=== PATIENT | female | born 1935 | race Two or more races ===

== ENCOUNTER 2017-07-17 20:37 | Inpatient (IN) | payer MEDICARE, OTHER ==
[~2017-07-17] VITALS: Ht 152.4 cm; Wt 43.6 kg
[~2017-07-17 20:37] MED LIST: ACET-898 PO; ACETAMINOPHEN 325 MG TAB PO PRN; ACETAMINOPHEN/HYDROcodone 325 MG/5 MG TAB PO PRN; ACETAMINOPHEN/HYDROcodone 325 MG/7.5 MG TAB PO PRN; BISA10SU3 RECTAL; BISACODYL 10 MG SUPP RECTAL PRN; CLON1TAB PO; DOCU8.6T PO; LACTULOSE SYRUP 20 GM/30 ML CUP PO PRN; LORA0.5T PO; LORA1TAB12 PO; LORazepam 0.5 MG TAB PO PRN; LORazepam 1 MG TAB PO PRN; MAGNESIUM HYDROXIDE SUSP 30 ML CUP PO PRN; MORPHINE SULFATE 4 MG/ML INJ IV PUSH PRN; NALOXONE HCL 0.4 MG/ML AMP IV PUSH PRN; ONDANSETRON HCL 4 MG/2 ML VIAL IV PUSH PRN; QUET5TAB PO; SENNOSIDES 8.6 MG TAB PO PRN; SODIUM CHLORIDE 0.9% FLUSH 10 ML FLUSH IV FLUSH PRN; ZINC20OI
[2017-07-17 20:45] VITALS: BP 127/65; PULSE 86; RESP 17; TEMP 97.9; O2SAT 98
[2017-07-17] MEDS ORDERED: SODIUM CHLORIDE 0.9% FLUSH 10 ML FLUSH IV FLUSH SCH (21:00)
[2017-07-17] MEDS: DOCUSATE SODIUM 50 MG/SENNA 8.6 MG TAB PO SCH (21:00)
[2017-07-17] MEDS: PANTOPRAZOLE SODIUM 40 MG VIAL IV PUSH SCH (22:06)
[2017-07-17] MEDS: QUEtiapine FUMARATE 25 MG TAB PO SCH (22:07)
[2017-07-17] MEDS: clonazePAM 1 MG TAB PO SCH (22:07)
[2017-07-17] MEDS: SODIUM CHLORIDE 0.9% FLUSH 10 ML FLUSH IV FLUSH SCH (22:08)
[2017-07-17] MEDS: SODIUM CHLOR 0.9% 1000 ML INJ 1,000 ML IV SCH (22:11)
[2017-07-17] MEDS: OCTREOTIDE INJ 500 MCG in SODIUM CHLORID 0.9% 500 ML INJ 499.5 ML IV SCH (22:23)
[2017-07-17 22:57] VITALS: PULSE 79
[2017-07-18] VITALS (13 sets, daily range): BP systolic 93–163; BP diastolic 53–97; PULSE 65–86; RESP 17–18; TEMP 97.3–98.6; O2SAT 94–99
--- NOTE | 2017-07-18 00:18 | HHI.HP ---
[facility] No Primary Care Physician Admission Diagnosis Diagnoses: Travel History International Travel<30 Days: No Contact w/Intl Traveler <30 Da: No Traveled to Known Affected Are: No History of Present Illness 82-year-old female on hospice for advanced dementia with a past medical history of hypertension, hyperlipidemia and multiple CVAs was brought to the emergency department by her daughter whom she lives with for soft, bloody stools since Wednesday. The patient is mostly nonverbal however her daughter who is her stone lathe operator describes dark blood with clots in the patient's stool since Wednesday. She has a history of anemia with GI bleed. Her last colonoscopy was 7 years ago which did not identify a source of bleeding. Patient's vital signs are stable. She has an H&H of 6.9/25.1. The patient is Religious and refuses all blood products. Her daughter also requests minimization of blood draws. Review of Systems Unable to obtain secondary to the patient's mental status Past Family Social History Past Medical History History of hypertension History of hyperlipidemia History of multiple CVAs History of anemia Past Surgical History Reported Medications Reported Meds & Active Scripts Active Reported Zinc Oxide (Zinc Oxide (Topical)) 20 % Oin Lorazepam 1 Mg Tab 1 Mg PO Q6H PRN Lorazepam 0.5 Mg Tab 0.5 Mg PO Q6H PRN Acetaminophen Extra Strength (Acetaminophen) 500 Mg Tablet 650 Mg PO Q4HR Quetiapine (Quetiapine Fumarate) 50 Mg Tab 50 Mg PO HS Docusate Sodium-Senna (Sennosides-Docusate Sodium) 8.6-50 Mg Tab 1 Tab PO QD Bisacodyl Supp (Bisacodyl) 10 Mg Supp 10 Mg RECTAL DAILY PRN Clonazepam 1 Mg Tab 1 Mg PO HS Allergies: Coded Allergies: No Known Drug Allergies (Verified Allergy, Unknown, 07/17/17) Family History Mother with diabetes mellitus Social History Does not use tobacco, alcohol or illicit drugs Physical Exam Vital Signs Vital Signs Date Time Temp Pulse Resp B/P (MAP) Pulse Ox O2 Delivery O2 Flow Rate FiO2 07/17/17 23:28 Room Air 07/17/17 20:45 97.9 86 17 127/65 (58) 98 Physical Exam GENERAL: Thin female lying in bed SKIN: No rashes, ecchymoses or lesions. Cool and dry. HEAD: Atraumatic. Normocephalic. No temporal or scalp tenderness. EYES: Pupils equal round and reactive. Extraocular motions intact. No scleral icterus. No injection or drainage. ENT: Nose without bleeding, purulent drainage or septal hematoma. Throat without erythema, tonsillar hypertrophy or exudate. Uvula midline. Airway patent. NECK: Trachea midline. No JVD or lymphadenopathy. Supple, nontender, no meningeal signs. CARDIOVASCULAR: Regular rate and rhythm. 2/6 NENA RESPIRATORY: Clear to auscultation. Breath sounds equal bilaterally. No wheezes , rales, or rhonchi. GASTROINTESTINAL: Abdomen soft, non-tender, nondistended. No hepato-splenomegaly , or palpable masses. No guarding. MUSCULOSKELETAL: Extremities without clubbing, cyanosis, or edema. No joint tenderness, effusion, or edema noted. No calf tenderness. NEUROLOGICAL: Patient is oriented to her daughter. Is not able to answer questions. Caprini VTE Risk Assessment Caprini VTE Risk Assessment: Mod/High Risk (score >= 2) Caprini Risk Assessment Model Point Value = 1 Point Value = 2 Point Value = 3 Point Value = 5 Age 41-60 Minor surgery BMI > 25 kg/m2 Swollen legs Varicose veins or History of unexplained or recurrent spontaneous Oral contraceptives or hormone replacement Sepsis (< 1 month) Serious lung disease, including pneumonia (< 1 month) Abnormal pulmonary function Acute myocardial infarction Congestive heart failure (< 1 month) History of inflammatory bowel disease Medical patient at bed rest Age 61-74 Arthroscopic surgery Major open surgery (> 45 min) Laparoscopic surgery (> 45 min) Malignancy Confined to bed (> 72 hours) Immobilizing plaster cast Central venous access Age >= 75 History of VTE Family history of VTE Factor V Leiden Prothrombin [id number] Lupus anticoagulant Anticardiolipin antibodies Elevated serum homocysteine Heparin-induced thrombocytopenia Other congenital or acquired thrombophilia Stroke (< 1 month) Elective arthroplasty Hip, pelvis, or leg fracture Acute spinal cord injury (< 1 month) Prophylaxis Regimen Total Risk Factor Score Risk Level Prophylaxis Regimen 0-1 Low Early ambulation 2 Moderate Order ONE of the following: *Sequential Compression Device (SCD) *Heparin 5000 units SQ BID 3-4 Higher Order ONE of the following medications: *Heparin 5000 units SQ TID *Enoxaparin/Lovenox 40 mg SQ daily (WT < 150 kg, CrCl > 30 mL/min) *Enoxaparin/Lovenox 30 mg SQ daily (WT < 150 kg, CrCl > 10-29 mL/min) *Enoxaparin/Lovenox 30 mg SQ BID (WT < 150 kg, CrCl > 30 mL/min) AND/OR *Sequential Compression Device (SCD) 5 or more Highest Order ONE of the following medications: *Heparin 5000 units SQ TID (Preferred with Epidurals) *Enoxaparin/Lovenox 40 mg SQ daily (WT < 150 kg, CrCl > 30 mL/min) *Enoxaparin/Lovenox 30 mg SQ daily (WT < 150 kg, CrCl > 10-29 mL/min) *Enoxaparin/Lovenox 30 mg SQ BID (WT < 150 kg, CrCl > 30 mL/min) AND *Sequential Compression Device (SCD) Assessment and Plan Assessment and Plan Assessment/plan: 1. Severe anemia/GI bleed H&H of 6.9/25.1 Patient is a Religious and per her daughter who is power of securities attorney refuses all blood products Patient's daughter requests minimization of blood draws, denies serial H&Hs IV Protonix, Octreotide ggt Gastroenterology consulted, appreciate assistance Clear liquid diet Monitor for signs of shock Daughter would like to explore all options of resuscitation with the exclusion of blood products 2. Suspected iron deficiency Iron profile pending Patient will likely benefit from iron supplementation 3. Advanced dementia On hospice Continue home Seroquel, Klonopin, Ativan FEN Clear liquid diet Electrolytes: monitor and replete prn Holding pharmacologic anticoagulation secondary to active GI bleed Physician Certification 2 Midnight Certification Type: Admission for Inpatient Services Order for Inpatient Services The services are ordered in accordance with Medicare regulations or non- Medicare payer requirements, as applicable. In the case of services not specified as inpatient-only, they are appropriately provided as inpatient services in accordance with the 2-midnight benchmark. Estimated LOS (days): 2 2 days is the estimated time the patient will need to remain in the hospital, assuming treatment plan goals are met and no additional complications. Post-Hospital Plan: Not yet determined Jimena Costello MD Jul 18, 2017 00:18
[2017-07-18] MEDS: SODIUM CHLORIDE 0.9% FLUSH 10 ML FLUSH IV FLUSH SCH ×2 (09:00→20:37)
[2017-07-18 09:51] LABS: AUTOMATED NEUTROPHIL # 4.9 TH/MM3 (1.8-7.7); BASOPHIL # 0.1 TH/MM3 (0-0.2); BASOPHIL % 0.8 % (0.0-2.0); EOSINOPHIL # 0.3 TH/MM3 (0-0.4); EOSINOPHIL % 3.1 % (0.0-4.0); LYMPH % 29.5 % (9.0-44.0); LYMPHOCYTE # 2.6 TH/MM3 (1.0-4.8); MEAN CELL VOLUME 64.5 FL (80.0-100.0); MONO % 10.6 % (0.0-8.0); PLATELET COUNT 237 TH/MM3 (150-450); RED BLOOD COUNT 2.86 MIL/MM3 (4.00-5.30); RED CELL DISTRIBUTION WIDTH 18.1 % (11.6-17.2); WHITE BLOOD COUNT 8.8 TH/MM3 (4.0-11.0)
[2017-07-18 10:07] LABS: HEMO FLAGS DIFF FINAL; MEAN CORPUSCULAR HGB CONC 29.5 % (32.0-36.0)
[2017-07-18 10:11] LABS: ANION GAP 8 MEQ/L (5-15); AST (GOT) 11 U/L (15-37); BICARBONATE 25.5 MEQ/L (21.0-32.0); BLOOD UREA NITROGEN 15 MG/DL (7-18); CHLORIDE 116 MEQ/L (98-107); GLOMERULAR FILTRATION RATE 97 ML/MIN (>89); MAGNESIUM 1.8 MG/DL (1.5-2.5); POTASSIUM 3.6 MEQ/L (3.5-5.1); SODIUM (NA) 149 MEQ/L (136-145)
[2017-07-18 10:13] LABS: HEMATOCRIT 18.4 % (35.0-46.0)
[2017-07-18 10:20] LABS: ALKALINE PHOSPHATASE 63 U/L (45-117); ALT (GPT) 9 U/L (10-53); TOTAL BILIRUBIN ADULT 0.2 MG/DL (0.2-1.0); TRANSFERRIN IRON PROFILE 286 MG/DL (200-360)
--- NOTE | 2017-07-18 10:50 | HHI.PR ---
Subjective Remarks Follow-up GI bleed, severe anemia. The patient is nonverbal. She does awaken to verbal stimuli, but does not answer questions. Per nursing, she has continued to have bloody stools. Objective Vitals Vital Signs Date Time Temp Pulse Resp B/P (MAP) Pulse Ox O2 Delivery O2 Flow Rate FiO2 07/18/17 10:05 99 Nasal Cannula 3.00 07/18/17 08:09 98.4 77 18 133/63 (86) 99 07/18/17 04:00 78 07/18/17 04:00 97.3 78 17 93/55 (68) 96 07/18/17 00:15 77 07/18/17 00:00 98 Nasal Cannula 3.00 07/18/17 00:00 98.6 78 17 108/53 (71) 98 07/17/17 23:28 Room Air 07/17/17 22:57 79 07/17/17 20:45 97.9 86 17 127/65 (85) 98 I/O 07/17/17 07/17/17 07/17/17 07/18/17 07/18/17 07/18/17 07:00 15:00 23:00 07:00 15:00 23:00 Intake Total 1039 ml Balance 1039 ml Intake Oral 0 ml IV Total 1039 ml # Voids 0 # Bowel Movements 1 Result Diagram: 07/18/1780407/18/17804 Objective Remarks General: Elderly female in no acute distress. Heart: Regular rate and rhythm. 2/6 systolic ejection murmur. Lungs: Clear to auscultation bilaterally. No wheezes, rales, or rhonchi. Breathing is nonlabored. Abdomen: Soft, nontender, nondistended. Extremities: No lower extremity edema. Psych: Sleeping, but awakens to verbal stimuli. Does not answer questions. Urinary Catheter: No Vascular Central Line Catheter: No A/P Assessment and Plan 1. GI bleed, severe anemia: Hemoglobin was 6.9 on presentation to the ER yesterday. Recheck this morning shows hemoglobin of 5.4. Patient continues to have blood in her stools. I spoke with the patient's daughter, who is her power of patent attorney. The patient is was witness and refuses all blood products. Family does want aggressive treatment with the exception of blood products. I spoke with Dr. Regan, gastroenterology. He recommended GoLYTELY prep, 1 gallon now. He will plan to for EGD/colonoscopy today. The patient's family does want to proceed with GI procedure to try to find the source of bleeding. 2. Advanced dementia: Patient on hospice. 3. DVT prophylaxis: SCDs, NIOCLE choudhury. Avoid chemical prophylaxis secondary to GI bleeding. The patient's daughter states that she is on her way to the hospital now. I explained to her that if we are unable to find the source of bleeding and her hemoglobin kept dropping, that this would result in . We discussed the risks involved with GI procedure as well. Rah Blanco MD Jul 18, 2017 10:50
[2017-07-18] MEDS ORDERED: PEG (High)/E-LYTE SOLN 4000 ML BTL PO ONE (11:00)
[2017-07-18] MEDS: DOCUSATE SODIUM 50 MG/SENNA 8.6 MG TAB PO SCH ×2 (11:04→20:38)
[2017-07-18] MEDS: PANTOPRAZOLE SODIUM 40 MG VIAL IV PUSH SCH ×2 (11:04→20:37)
[2017-07-18] MEDS ORDERED: IRON SUCROSE INJ 100 MG in SODIUM CHLORIDE 0.9% INJ 100 ML IV ONE (14:00)
[2017-07-18] MEDS ORDERED: EPOETIN ALFA 20,000 UNITS/ML VIAL SQ ONE (14:00)
[2017-07-18] MEDS: SODIUM CHLOR 0.9% 1000 ML INJ 1,000 ML IV SCH ×2 (14:39→22:48)
[2017-07-18 15:36] LABS: REVIEW FLAG FINAL
[2017-07-18 15:39] LABS: HEMATOCRIT 17.9 % (35.0-46.0)
--- NOTE | 2017-07-18 16:03 | MB ---
cc: EFRA TELLO DATE OF CONSULTATION: 07/18/2017. REASON FOR CONSULTATION: GI bleed and anemia. DATE OF : 1935. REFERRING PHYSICIAN: Dr. Marleny Bran. HISTORY OF PRESENT ILLNESS: Thank you for the consultation. This is a pleasant 82-year-old lady who apparently has a history of dementia. She is in hospice according to her family to help with her dementia. The patient was doing okay until she started having bloody stool, soft, on Wednesday. The patient is unable to give good history. Most of the history was done from her daughter and her granddaughter who are the caregivers and very involved with the patient. The patient's family describes that the patient had dark stool with clots for the last five days. She had history of anemia and GI bleed in the past. The last colonoscopy was about seven years ago and endoscopy maybe two years ago. The patient was significantly anemic with her hemoglobin as low as 5.9. The patient is a Taoist and she will not be able to take any blood products. The patient is lying in bed comfortably with no significant complaints, but again, is nonverbal. REVIEW OF SYSTEMS: Unobtainable. It seems, according to the family, she is reasonably functional except for the dementia. PAST MEDICAL HISTORY: Significant for: 1. Hyperlipidemia. 2. CVA. 3. Anemia. 4. Hypertension. 5. section. MEDICATIONS: Medications reviewed in the chart. ALLERGIES: NO KNOWN DRUG ALLERGIES. SOCIAL HISTORY: No tobacco, drugs or alcohol. FAMILY HISTORY: Family history is significant for diabetes. PHYSICAL EXAMINATION: GENERAL: The patient is awake, not oriented, looks well-nourished. HEAD, EYES, EARS, NOSE, THROAT: Atraumatic. The pupils are round and reactive to light. NECK: The neck is supple. CHEST: Clear to auscultation and percussion. CARDIAC: Regular rate and rhythm. ABDOMEN: Abdomen soft and nondistended and nontender. No hepatosplenomegaly. No masses. Positive bowel sounds. EXTREMITIES: No edema, clubbing or cyanosis at this time. NEUROLOGIC: Neurologically awake, not oriented, no focal abnormality at this time. PSYCHIATRIC: Psychologically unable to evaluate. LABORATORY DATA: White count 8.8, hemoglobin 5.4, platelets 237,000. Sodium 149, potassium 3.6, iron 9, saturation 2.2, AST 11, ALT 9, albumin 2.6. ASSESSMENT AND PLAN: 82-year-old lady with dementia with active GI bleed. The patient dropped her hemoglobin significantly and is currently 5.4. She is a Taoist. Her family, who is power of insurance attorney, her daughter, refusing all blood products. I had a long discussion with them about the risk of having no blood products. We talked about doing upper endoscopy and colonoscopy and I explained to them the high risk of the procedure with anesthesia during significant anemia. The risks include CVA, myocardial infarction, respiratory failure, also we talked about starting IV infusion and Procrit. I told them that this will not help in the acute phase. We had a discussion with Dr. Pond and he confirmed that. Still, the family refused any blood products completely. They are going to think about performing the upper endoscopy and colonoscopy and if they would like to proceed, we will do it this afternoon. We will prep the patient for the procedures and will repeat hemoglobin in a few hours before the procedure. MD SUNSHINE Sharpe/ADRIANA /3:27 PM /3:49 PM
--- NOTE | 2017-07-18 17:36 | PD.PROCEDR ---
GI Procedure PROCEDURE PERFORMED Upper endoscopy, colonoscopy with biopsy INDICATION FOR PROCEDURE Anemia, GI bleed PROCEDURE: The procedure, risks and benefits were discussed with Ms. Price and informed consent was obtained. Anesthesia sedated her with Diprivan. She was placed in the left lateral decubitus position. EGD: The Pentax videoscope was introduced through the oropharynx and advanced to the second portion of the duodenum under direct visualization. Retroflexion was performed in the stomach. The scope withdrawal back after that without any immediate complication FINDINGS: Mild erythema and the body of the stomach most likely irritation from the NG tube, no sign of active bleeding seen Colonoscopy: The Pentax videoscope was introduced through the rectum and advanced to cecum which was identified by the ileocecal valve and appendiceal orifice. Retroflexion was performed in the rectum. Colonic prep was good, random biopsy with done throughout the colon FINDINGS: No active bleeding was seen Significant exudate with small ulcerations consistent with colitis most likely ulcerative colitis but it could be infectious ESTIMATED BLOOD LOSS: None SPECIMENS REMOVED: Random colon biopsy COMPLICATIONS: None IMPRESSION: Minimal irritation of the stomach possibly NG tube versus gastritis Colitis with exudate most likely ulcerative colitis but infectious process cannot BE rule out No active bleeding PLAN: Await biopsy results Asacole HD 800 mg 3 times daily H an H in a.m. Supportive care Further plan depending on the biopsy Franki Regan MD Jul 18, 2017 17:36
[2017-07-18] MEDS ORDERED: DO NOT ADM ANY ANTICOAGULANT DRUGS PRN (17:41)
[2017-07-18] MEDS: QUEtiapine FUMARATE 25 MG TAB PO SCH (20:37)
[2017-07-18] MEDS: clonazePAM 1 MG TAB PO SCH (20:37)
[2017-07-18] MEDS: MESALAMINE HD 800 MG DELAYED RELEASE TAB PO SCH (20:37)
[2017-07-18] MEDS: OCTREOTIDE INJ 500 MCG in SODIUM CHLORID 0.9% 500 ML INJ 499.5 ML IV SCH (22:48)
[2017-07-19] VITALS: BP 138/62; PULSE 74; PULSE 79; RESP 17; TEMP 98.5; O2SAT 98
[2017-07-19] MEDS: MESALAMINE HD 800 MG DELAYED RELEASE TAB PO SCH ×4 (02:15→17:40)
[2017-07-19 04:00] VITALS: BP 117/57; PULSE 78; PULSE 82; RESP 17; TEMP 98.7; O2SAT 98
[2017-07-19 07:27] LABS: AUTOMATED NEUTROPHIL # 3.7 TH/MM3 (1.8-7.7); BASOPHIL # 0.1 TH/MM3 (0-0.2); BASOPHIL % 0.8 % (0.0-2.0); EOSINOPHIL # 0.2 TH/MM3 (0-0.4); EOSINOPHIL % 3.2 % (0.0-4.0); HEMO FLAGS DIFF FINAL; LYMPH % 28.8 % (9.0-44.0); LYMPHOCYTE # 1.8 TH/MM3 (1.0-4.8); MEAN CELL VOLUME 63.5 FL (80.0-100.0); MEAN CORPUSCULAR HEMOGLOBIN 18.7 PG (27.0-34.0); MEAN CORPUSCULAR HGB CONC 29.5 % (32.0-36.0); MONO % 9.7 % (0.0-8.0); NEUT % 57.5 % (16.0-70.0); PLATELET COUNT 246 TH/MM3 (150-450); RED BLOOD COUNT 2.55 MIL/MM3 (4.00-5.30); RED CELL DISTRIBUTION WIDTH 17.9 % (11.6-17.2); WHITE BLOOD COUNT 6.4 TH/MM3 (4.0-11.0)
[2017-07-19 07:31] LABS: HEMATOCRIT 16.2 % (35.0-46.0)
[2017-07-19] MEDS: PANTOPRAZOLE SODIUM 40 MG VIAL IV PUSH SCH ×2 (07:44→20:25)
[2017-07-19] MEDS: SODIUM CHLORIDE 0.9% FLUSH 10 ML FLUSH IV FLUSH SCH ×2 (07:50→20:25)
[2017-07-19 07:55] LABS: BICARBONATE 24.5 MEQ/L (21.0-32.0)
[2017-07-19 07:59] LABS: POTASSIUM 2.8 MEQ/L (3.5-5.1)
[2017-07-19 08:00] VITALS: BP 120/83; PULSE 79; PULSE 81; RESP 16; TEMP 98.8; O2SAT 94
[2017-07-19 08:22] LABS: CALCIUM-PROTEIN CORRECTED 8.1 MG/DL (8.5-10.1)
[2017-07-19] MEDS: DOCUSATE SODIUM 50 MG/SENNA 8.6 MG TAB PO SCH ×2 (09:30→20:25)
[2017-07-19] MEDS: NS + KCL 20 MEQ INJ 1,000 ML IV SCH (09:49)
[2017-07-19] MEDS: POTASSIUM CHLOR 20 MEQ PREMIX 100 ML IV SCH ×2 (09:50→11:17)
--- NOTE | 2017-07-19 10:04 | HHI.PR ---
Subjective Remarks Follow up GI bleed, anemia. Patient is Uzbek-speaking, but does not really answer questions. Yesterday she was able to verbalize responses to questions, but only yes/no. Today she does not answer questions. Objective Vitals Vital Signs Date Time Temp Pulse Resp B/P (MAP) Pulse Ox O2 Delivery O2 Flow Rate FiO2 07/19/17 08:00 98.8 81 16 120/83 (95) 94 07/19/17 04:00 98.7 78 17 117/57 (77) 98 07/19/17 04:00 82 07/19/17 00:00 74 07/19/17 00:00 98.5 79 17 138/62 (87) 98 07/18/17 20:00 98 Room Air 07/18/17 20:00 97.8 78 17 127/67 (87) 98 07/18/17 20:00 78 07/18/17 18:20 97.8 86 18 156/77 (103) 94 07/18/17 18:05 85 21 166/88 (114) 94 Nasal Cannula 2 07/18/17 18:00 85 21 152/87 (108) 96 Nasal Cannula 2 07/18/17 17:51 98 Nasal Cannula 3.00 07/18/17 17:45 88 21 163/91 (115) 91 Nasal Cannula 2 07/18/17 17:41 97.2 87 21 186/89 (121) 96 Nasal Cannula 2 07/18/17 16:08 97.8 81 18 132/79 (96) 98 07/18/17 16:00 76 07/18/17 12:09 98.0 79 18 163/97 (119) 97 07/18/17 12:00 85 07/18/17 10:05 99 Nasal Cannula 3.00 I/O 07/18/17 07/18/17 07/18/17 07/19/17 07/19/17 07/19/17 07:00 15:00 23:00 07:00 15:00 23:00 Intake Total 1039 ml 300 ml 2120 ml Balance 1039 ml 300 ml 2120 ml Intake Oral 0 ml 0 ml 240 ml IV Total 1039 ml 1880 ml Other 300 ml # Voids 0 2 4 # Bowel Movements 1 3 0 Result Diagram: 07/19/1761907/19/17619 Objective Remarks General: Elderly female in no acute distress. Heart: Regular rate and rhythm. 2/6 systolic ejection murmur. Lungs: Clear to auscultation bilaterally. No wheezes, rales, or rhonchi. Breathing is nonlabored. Abdomen: Soft, nontender, nondistended. Extremities: No lower extremity edema. Psych: Sleeping, but awakens to verbal stimuli. Does not answer questions. Procedures 07/18/17 EGD/colonoscopy Urinary Catheter: No Vascular Central Line Catheter: No A/P Assessment and Plan 1. GI bleed, severe anemia: Hemoglobin was 6.9 on presentation to the ER. H/H continues to decrease. EGD/colonoscopy showed colitis, possibly ulcerative colitis. Biopsy pending. C. difficile toxin ordered. Asacol ordered by GI. 2. Advanced dementia: Patient on hospice. HOVF consulted. 3. DVT prophylaxis: SCDs, NICOLE choudhury. Avoid chemical prophylaxis secondary to GI bleeding. I have discussed extensively with the patient's family that without transfusion , she will likely continue to worsen, leading to . The patient is Jehovah' s Witness and refuses all blood products. Procrit given yesterday, will schedule 3 times weekly. Patient was also given IV iron, which will be ordered weekly. Prognosis is extremely poor and this has been communicated with the family multiple times. Rah Blanco MD Jul 19, 2017 10:04
[2017-07-19 12:00] VITALS: BP 123/58; PULSE 83; PULSE 90; RESP 16; TEMP 98.3; O2SAT 97
--- NOTE | 2017-07-19 12:26 | PD.WCN.NOT ---
Wound Consult Description: Received wound management consult for buttocks/ sacral area from Doctor Yina Communicated with: DAIANA Nava [address] [place] [address] and Doctor Blanco Recommendation: 1.Please cleanse buttock with soap and water to remove urine and feces and pat dry. Apply moisture barrier cream and leave open to air 2. Turn patient every 2 hours and PRN for comfort and offloading of pressure from jay prominences. 3. Please use ultra sorb pads for incontinence management. Additional Information: Patient seen on for evaluation of buttocks/ sacral wound management. [facility] editor. Turned patient with maximum assistance to R side to reveal intact scar tissue to bilateral buttock area. No open wounds or erythema are seen at this time. Applied moisture barrier cream and positioned patient to R side.Recommendations noted above. Isabel Melendez [facility] Jul 19, 2017 12:26
[2017-07-19] MEDS: OCTREOTIDE INJ 500 MCG in SODIUM CHLORID 0.9% 500 ML INJ 499.5 ML IV SCH ×2 (14:00→20:26)
[2017-07-19 14:08] LABS: REVIEW FLAG FINAL
[2017-07-19 14:11] LABS: HEMATOCRIT 17.8 % (35.0-46.0)
--- NOTE | 2017-07-19 15:50 | HHI.GIFU ---
Subjective Remarks Pt resting in bed, daughter at bedside. History of dementia, unable to answer questions appropriately, however she does not appear to be in any distress. (Amie Baeza) Objective Vitals I&O Vital Signs Date Time Temp Pulse Resp B/P (MAP) Pulse Ox O2 Delivery O2 Flow Rate FiO2 07/19/17 12:00 98.3 90 16 123/58 (79) 97 07/19/17 08:00 98.8 81 16 120/83 (95) 94 07/19/17 08:00 Room Air 2.00 07/19/17 08:00 79 07/19/17 04:00 98.7 78 17 117/57 (77) 98 07/19/17 04:00 82 07/19/17 00:00 74 07/19/17 00:00 98.5 79 17 138/62 (87) 98 07/18/17 20:00 98 Room Air 07/18/17 20:00 97.8 78 17 127/67 (87) 98 07/18/17 20:00 78 07/18/17 18:20 97.8 86 18 156/77 (103) 94 07/18/17 18:05 85 21 166/88 (114) 94 Nasal Cannula 2 07/18/17 18:00 85 21 152/87 (108) 96 Nasal Cannula 2 07/18/17 17:51 98 Nasal Cannula 3.00 07/18/17 17:45 88 21 163/91 (115) 91 Nasal Cannula 2 07/18/17 17:41 97.2 87 21 186/89 (121) 96 Nasal Cannula 2 07/18/17 16:08 97.8 81 18 132/79 (96) 98 07/18/17 16:00 76 I/O 07/18/17 07/18/17 07/18/17 07/19/17 07/19/17 07/19/17 07:00 15:00 23:00 07:00 15:00 23:00 Intake Total 1039 ml 300 ml 2120 ml 100 ml Balance 1039 ml 300 ml 2120 ml 100 ml Intake Oral 0 ml 0 ml 240 ml IV Total 1039 ml 1880 ml 100 ml Other 300 ml # Voids 0 2 4 # Bowel Movements 1 3 0 Laboratory Laboratory Tests Test 07/19/17 06:20 12/11/17 13:51 White Blood Count 6.4 Red Blood Count 2.55 Hemoglobin 4.8 5.3 Hematocrit 16.2 17.8 Mean Corpuscular Volume 63.5 Mean Corpuscular Hemoglobin 18.7 Mean Corpuscular Hemoglobin Concent 29.5 Red Cell Distribution Width 17.9 Platelet Count 246 Mean Platelet Volume 9.2 Neutrophils (%) (Auto) 57.5 Lymphocytes (%) (Auto) 28.8 Monocytes (%) (Auto) 9.7 Eosinophils (%) (Auto) 3.2 Basophils (%) (Auto) 0.8 Neutrophils # (Auto) 3.7 Lymphocytes # (Auto) 1.8 Monocytes # (Auto) 0.6 Eosinophils # (Auto) 0.2 Basophils # (Auto) 0.1 CBC Comment DIFF FINAL Differential Comment Blood Urea Nitrogen 6 Creatinine 0.51 Random Glucose 101 Total Protein 5.8 Calcium Level 7.4 Sodium Level 145 Potassium Level 2.8 Chloride Level 113 Carbon Dioxide Level 24.5 Anion Gap 8 Estimat Glomerular Filtration Rate 115 Protein Corrected Calcium 8.1 Physical Exam HEENT: Normocephalic; atraumatic CHEST: CTA CARDIAC: RRR ABDOMEN: Soft, nondistended, no hepatosplenomegaly; bowel sounds active x 4. EXTREMITIES: No clubbing, cyanosis, or edema. SKIN: Normal; no rash; no jaundice. MARKET DEVELOPMENT DIRECTOR: Awake. (Amie Baeza) Assessment and Plan Plan Assessment - Anemia- H/H 5.3/17.8. Pt is a Jehovah witness, and per her daughter who is the POA, is refusing all blood products. EGD/colonoscopy (07/18) --> Minimal irritation of the stomach possibly NG tube vs gastritis. Colitis with exudate most likely ulcerative colitis but infectious process cannot be ruled out. No active bleeding. Per pts daughter, she has had chronic issues with blood in her stool, however, she reports not previous diagnosis of colitis. C. Diff toxin pending. Colon biopsy pending. Pt has been started on Asacol 800mg PO TID. Also receiving iron transfusion and Epogen. Hematology has been consulted. Plan - Monitor H/H - Pt is a Jehovah witness and does not accept blood transfusions - Hematology consulted - Asacol - C. Diff toxin pending - Colon biopsy pending - Supportive care - Further recommendations to follow Pt has been seen and examined by myself and Dr. Casiano and this note is written on his behalf (Amei Baeza) Physician Comments Patient seen and examined Agree with above Continue with current supportive care Monitor labs Await pathology (Claudio Casiano MD) Amie Baeza Jul 19, 2017 15:50 Claudio Casiano MD Jul 19, 2017 21:24
[2017-07-19 16:00] VITALS: BP 128/60; PULSE 87; PULSE 88; RESP 16; TEMP 98.7; O2SAT 97
[2017-07-19 16:23] LABS: HEMOGLOBIN A1a 1.2 %; HEMOGLOBIN A1b 1.7 %; HEMOGLOBIN Ao 84.7 %; HEMOGLOBIN LA1C 1.9 %; HEMOGLOBIN P3 5.5 %
--- NOTE | 2017-07-19 18:11 | MB ---
cc: ANNA BRENNER MD DATE OF CONSULTATION 07/19/2017 DATE OF 1935 CHIEF COMPLAINTS 1. Anemia. 2. Colitis. 3. Presybeterian declining blood products. HISTORY OF THE PRESENT ILLNESS The patient is an 82-year-old lady with advanced dementia with a past medical history that includes hypertension, hyperlipidemia, multiple CVAs with residual neurologic deficit and history of anemia who was brought to the emergency room by her daughter with bloody stools. History is obtained from the patients granddaughter and daughter who are at bedside. They report that she does have a history of anemia and she also has a history of GI bleeding. They believe that she was told that she had colitis several years ago. She lives with her daughter who is her main direct sales representative. She is currently on hospice and hospice provides assistance with bathing and other needs. While inpatient she had an EGD and a colonoscopy performed yesterday by Dr. Regan. The EGD showed mild erythema in the body of the stomach most likely irritation from the NG tube. No active bleeding. Colonoscopy showed with no active bleeding. However, it did show significant exudate with small ulcerations consistent with colitis, most likely ulcerative colitis versus less likely infection. Biopsy results were taken and they are currently pending. She also has a wound on her buttocks and sacral area for which she has been seen by wound care. REVIEW OF SYSTEMS Unable to obtain secondary to the patient's mental status. PAST MEDICAL HISTORY 1. Hypertension. 2. Hyperlipidemia. 3. CVA. 4. Advanced dementia. 5. Anemia. 6. Colitis. PAST SURGICAL HISTORY . ALLERGIES No known drug allergies. FAMILY HISTORY No known family history of bleeding. SOCIAL HISTORY The patient lives at home with her daughter. She has advanced dementia. MEDICATIONS Current hospital medications include: 1. Tylenol. 2. Iron sucrose. 3. Ativan. 4. Procrit. Vital signs show temperature of 98.3, pulse of 90, blood pressure of 123/58, pulse ox of 97. PHYSICAL EXAMINATION GENERAL: Frail, elderly lady, resting in bed. HEAD: Normocephalic, atraumatic. ENT: Pale mucous mental membranes. CARDIOVASCULAR: Regular rate and rhythm with no murmurs. RESPIRATORY: Clear to auscultation bilaterally. ABDOMEN: Soft, nontender, nondistended with bowel sounds present. EXTREMITIES: Frail with muscle wasting. No edema. MUSCULOSKELETAL: Decreased range of motion. NEUROLOGIC: Decreased strength in legs. Daughter reports that this is residual from her stroke. PSYCHIATRIC: Patient with dementia. She is nonverbal. LABORATORY DATA CBC from today with white blood cell count of 6.4, hemoglobin of 4.8, platelet count of 246 with a normal differential. Chemistry studies with a sodium of 145, potassium 2.8, creatinine of 0.51. She previously had iron studies performed which revealed iron level of 9, total iron binding capacity of 400, percent sat of 2.2. Total bili is 0.2 and MCV is 63.5. ASSESSMENT AND PLAN Severe anemia from GI blood loss from presumed colitis. Discussed severe clinical situation with the patient's daughter and granddaughter who are at bedside. The patient's daughter is her next of kin and decision maker. As they are Presybeterian they decline blood products. Discussed that with the decline in blood products we would have to give the patient the building blocks so that she can make her own red blood cells. Suspect that this bleed is chronic due to low hemoglobin and stable vitals and also report of longstanding colitis and anemia. Our goal is to stop the blood loss, limit blood sampling frequency and limit the size of the tubes. We will avoid anticoagulants and antiplatelet agents. We will have blood drawn in pediatric tubes. We will give Procrit and this order has already been placed. We will give IV iron sucrose. She has already received [address] order for IV iron sucrose 300 mg x3 days. Will also put an order in for folic acid as well as oral supplements as well as vitamin B12 injection to be done for the next 5 days. She is receiving IV fluids. Discussed that there are currently companies that are testing blood substitute products, however, none of these are currently Food and Drug Administration approved. They understand that the situation is critical and that the patient may as a result of not receiving blood transfusion. We will proceed with the above measures and will continue to monitor the patient. We will continue to follow along daily. Thank you for this consultation. MD JARAD Myles/CLAIRE /5:28 PM /5:44 PM GREGORY
[2017-07-19] MEDS: FOLIC ACID 1 MG TAB PO SCH (18:28)
[2017-07-19] MEDS: CYANOCOBALAMIN 1000 MCG/ML VIAL IM SCH (18:28)
[2017-07-19 20:00] VITALS: BP 129/77; PULSE 76; PULSE 77; RESP 16; TEMP 97.8; O2SAT 99
[2017-07-19] MEDS: clonazePAM 1 MG TAB PO SCH (20:24)
[2017-07-19] MEDS: QUEtiapine FUMARATE 25 MG TAB PO SCH (20:24)
[2017-07-19 20:53] LABS: C. DIFF EPI 027 PRESUMPTIVE NEGATIVE (NEGATIVE)
[2017-07-20] VITALS: BP 102/57; PULSE 80; PULSE 81; RESP 18; TEMP 97.7; O2SAT 96
[2017-07-20] MEDS: MESALAMINE HD 800 MG DELAYED RELEASE TAB PO SCH ×3 (02:00→18:00)
[2017-07-20 04:00] VITALS: BP 108/57; PULSE 72; PULSE 77; RESP 18; TEMP 97.5; O2SAT 93
[2017-07-20] MEDS: NS + KCL 20 MEQ INJ 1,000 ML IV SCH ×2 (04:33→23:34)
[2017-07-20 07:16] LABS: AUTOMATED NEUTROPHIL # 4.5 TH/MM3 (1.8-7.7); BASOPHIL % 0.6 % (0.0-2.0); EOSINOPHIL # 0.2 TH/MM3 (0-0.4); EOSINOPHIL % 3.3 % (0.0-4.0); LYMPH % 25.4 % (9.0-44.0); LYMPHOCYTE # 1.9 TH/MM3 (1.0-4.8); MEAN CELL VOLUME 62.4 FL (80.0-100.0); MEAN CORPUSCULAR HEMOGLOBIN 18.3 PG (27.0-34.0); MONO % 9.9 % (0.0-8.0); NEUT % 60.8 % (16.0-70.0); PLATELET COUNT 263 TH/MM3 (150-450); WHITE BLOOD COUNT 7.4 TH/MM3 (4.0-11.0)
[2017-07-20 07:17] LABS: MEAN CORPUSCULAR HGB CONC 29.3 % (32.0-36.0)
[2017-07-20 07:18] LABS: BICARBONATE 24.9 MEQ/L (21.0-32.0); MAGNESIUM 1.3 MG/DL (1.5-2.5); POTASSIUM 3.4 MEQ/L (3.5-5.1)
[2017-07-20 07:23] LABS: HEMATOCRIT 17.5 % (35.0-46.0); HEMO FLAGS DIFF FINAL
[2017-07-20 08:00] VITALS: BP 123/58; PULSE 83; RESP 18; TEMP 99; O2SAT 96
[2017-07-20] MEDS: SODIUM CHLORIDE 0.9% FLUSH 10 ML FLUSH IV FLUSH SCH ×2 (09:00→20:45)
[2017-07-20] MEDS: DOCUSATE SODIUM 50 MG/SENNA 8.6 MG TAB PO SCH ×2 (09:00→20:44)
[2017-07-20] MEDS: PANTOPRAZOLE SODIUM 40 MG VIAL IV PUSH SCH ×2 (10:12→20:44)
[2017-07-20] MEDS: CYANOCOBALAMIN 1000 MCG/ML VIAL IM SCH (10:17)
[2017-07-20] MEDS: FOLIC ACID 1 MG TAB PO SCH (10:23)
[2017-07-20] MEDS: IRON SUCROSE INJ 300 MG in SODIUM CHLORIDE 0.9% INJ 100 ML IV SCH (10:31)
--- NOTE | 2017-07-20 10:44 | HHI.PR ---
Subjective Remarks Follow up anemia, colitis, electrolyte abnormalities. Discussed with the patient 's daughter at bedside. Patient does not answer questions, but is awake and eating breakfast with assistance. Still having blood in the stool. Objective Vitals Vital Signs Date Time Temp Pulse Resp B/P (MAP) Pulse Ox O2 Delivery O2 Flow Rate FiO2 07/20/17 04:00 Room Air 07/20/17 04:00 97.5 77 18 108/57 (74) 93 07/20/17 04:00 72 07/20/17 00:00 81 07/20/17 00:00 97.7 80 18 102/57 (72) 96 07/20/17 00:00 Room Air 07/19/17 20:00 76 07/19/17 20:00 Room Air 07/19/17 20:00 97.8 77 16 129/77 (94) 99 07/19/17 16:00 87 07/19/17 16:00 98.7 88 16 128/60 (82) 97 07/19/17 12:00 98.3 90 16 123/58 (79) 97 07/19/17 12:00 83 I/O 07/19/17 07/19/17 07/19/17 07/20/17 07/20/17 07/20/17 07:00 15:00 23:00 07:00 15:00 23:00 Intake Total 2120 ml 100 ml 240 ml 1000 ml Balance 2120 ml 100 ml 240 ml 1000 ml Intake Oral 240 ml 240 ml IV Total 1880 ml 100 ml 1000 ml # Voids 4 4 4 # Bowel Movements 0 Result Diagram: 07/20/1762007/20/1721 Objective Remarks General: Elderly female in no acute distress. Heart: Regular rate and rhythm. 2/6 systolic ejection murmur. Lungs: Clear to auscultation bilaterally. No wheezes, rales, or rhonchi. Breathing is nonlabored. Abdomen: Soft, nontender, nondistended. Extremities: No lower extremity edema. Psych: Alert. Does not answer questions. Procedures 07/18/17 EGD/colonoscopy Urinary Catheter: No Vascular Central Line Catheter: No A/P Assessment and Plan 1. GI bleed, severe anemia: Hemoglobin was 6.9 on presentation to the ER. H/H remains very low, but has stabilized. EGD/colonoscopy showed colitis, possibly ulcerative colitis. Biopsy pending. C. difficile toxin negative. Asacol ordered by GI. Appreciate hematology assistance. Continue CarlostDandy. 2. Advanced dementia: Patient on hospice. HOVF consulted. 3. DVT prophylaxis: SCDs, NICOLE choudhury. Avoid chemical prophylaxis secondary to GI bleeding. I have discussed extensively with the patient's family that without transfusion , she will likely continue to worsen, leading to . The patient is Jehovah' s Witness and refuses all blood products. Prognosis is extremely poor and this has been communicated with the family multiple times. Rah Blanco MD Jul 20, 2017 10:44
--- NOTE | 2017-07-20 11:42 | PD.ONC.PN ---
Subjective Subjective Remarks Afebrile overnight. Patient resting in bed in nad. Objective Data Date Time Temp Pulse Resp B/P (MAP) Pulse Ox O2 Delivery O2 Flow Rate FiO2 07/20/17 04:00 Room Air 07/20/17 04:00 97.5 77 18 108/57 (74) 93 07/20/17 04:00 72 07/20/17 00:00 81 07/20/17 00:00 97.7 80 18 102/57 (72) 96 07/20/17 00:00 Room Air 07/19/17 20:00 76 07/19/17 20:00 Room Air 07/19/17 20:00 97.8 77 16 129/77 (94) 99 07/19/17 16:00 87 07/19/17 16:00 98.7 88 16 128/60 (82) 97 07/19/17 12:00 98.3 90 16 123/58 (79) 97 07/19/17 12:00 83 07/20/17 07/20/17 07/20/17 07:00 15:00 23:00 Intake Total 1000 ml Balance 1000 ml Result Diagram: 07/20/17 0621 07/20/17620 Laboratory Results Laboratory Tests Test 07/19/17 13:51 07/19/17 18:35 07/20/17 06:21 Hemoglobin 5.3 GM/DL 5.1 GM/DL Hematocrit 17.8 % 17.5 % Stool C. difficile Toxin (PCR) NEGATIVE Stl C. difficile Toxin Epiderm 027 PRESUMPTIVE NEGATIVE White Blood Count 7.4 TH/MM3 Red Blood Count 2.80 MIL/MM3 Mean Corpuscular Volume 62.4 FL Mean Corpuscular Hemoglobin 18.3 PG Mean Corpuscular Hemoglobin Concent 29.3 % Red Cell Distribution Width 18.0 % Platelet Count 263 TH/MM3 Mean Platelet Volume 9.7 FL Neutrophils (%) (Auto) 60.8 % Lymphocytes (%) (Auto) 25.4 % Monocytes (%) (Auto) 9.9 % Eosinophils (%) (Auto) 3.3 % Basophils (%) (Auto) 0.6 % Neutrophils # (Auto) 4.5 TH/MM3 Lymphocytes # (Auto) 1.9 TH/MM3 Monocytes # (Auto) 0.7 TH/MM3 Eosinophils # (Auto) 0.2 TH/MM3 Basophils # (Auto) 0.0 TH/MM3 CBC Comment DIFF FINAL Differential Comment Hematology Comments Blood Urea Nitrogen 2 MG/DL Creatinine 0.51 MG/DL Random Glucose 97 MG/DL Calcium Level 7.5 MG/DL Magnesium Level 1.3 MG/DL Sodium Level 147 MEQ/L Potassium Level 3.4 MEQ/L Chloride Level 115 MEQ/L Carbon Dioxide Level 24.9 MEQ/L Anion Gap 7 MEQ/L Estimat Glomerular Filtration Rate 115 ML/MIN Ferritin 63 NG/ML Administered Medications Medications (Trade) Dose Ordered Sig/Milton Route PRN Reason Start Time Stop Time Status Last Admin Dose Admin Sodium Chloride (NS Flush) 2 ml BID IV FLUSH 07/17/17 21:00 07/19/17 07:50 Pantoprazole Sodium (Protonix Inj) 40 mg BID IV PUSH 07/17/17 21:00 07/20/17 10:12 Octreotide Acetate 500 mcg/ Sodium Chloride 500 ml @ 25 mls/hr Q20H IV 07/17/17 22:00 07/22/17 21:59 07/19/17 20:26 Clonazepam (KlonoPIN) 1 mg HS PO 07/17/17 21:00 07/19/17 20:24 Quetiapine Fumarate (SEROquel) 50 mg HS PO 07/17/17 21:15 07/19/17 20:24 Senna/Docusate Sodium (Kirti-Colace) 1 tab BID PO 07/17/17 21:00 07/19/17 09:30 Mesalamine (Asacol Hd Dr) 800 mg Q8H PO 07/18/17 18:00 07/20/17 10:22 Potassium Chloride/Sodium Chloride 1,000 ml @ 50 mls/hr Q20H IV 07/19/17 10:00 07/20/17 04:33 Folic Acid (Folate) 1 mg DAILY PO 07/19/17 17:30 07/20/17 10:23 Cyanocobalamin (Vitamin B12 Inj) 1,000 mcg DAILY IM 07/19/17 18:00 07/23/17 17:59 07/20/17 10:17 Iron Sucrose 300 mg/Sodium Chloride 115 ml @ 76.667 mls/ hr DAILY IV 07/20/17 09:00 07/22/17 10:29 07/20/17 10:31 Objective Remarks GENERAL: Pale female supine in bed in nad. SKIN: Warm and dry. HEAD: Normocephalic. EYES: No scleral icterus. No injection or drainage. NECK: Supple, trachea midline. CARDIOVASCULAR: +S1/S2 RESPIRATORY: Breath sounds equal bilaterally. No accessory muscle use. GASTROINTESTINAL: Abdomen soft, non-tender, nondistended. EXTREMITIES: No cyanosis MUSCULOSKELETAL: Adequate muscle tone. NEUROLOGICAL: awake. following commands. Assessment/Plan Problem List: (1) Microcytic hypochromic anemia ICD Codes: D50.9 - Iron deficiency anemia, unspecified Plan: --give IV iron, B12 injections, avoid iatrogenic blood loss --no blood products, patient is Yarsanism. ++Severe anemia from GI blood loss from presumed colitis. -- EGD and colonoscopy, 07/18-->No active bleeding. ++ significant exudate with small ulcerations consistent with colitis, most likely ulcerative colitis versus less likely infection. Assessment 82y/o female admitted with anemia/bloody stools. --h/o Colitis. -- Faith declining blood products. --h/o hypertension, hyperlipidemia, multiple CVAs with residual neurologic deficit Plan 1. continue IV iron 2. avoid iatrogenic blood loss. would not order labs unless absolutely necessary. Attending Statement The exam, history, and the medical decision-making described in the above note were completed with the assistance of the mid-level provider. I reviewed and agree with the findings presented. I attest that I had a [id number] encounter with the patient on the same day, and personally performed and documented my assessment and findings in the medical record.82 yoF with likely ulcerative colitis and chronic GIB. Low hemoglobin unable to accept blood due to muslim beliefs. Receiving IV iron, B12, folate, procrit. Minimize blood draw. Stop bleeding. Sahra Kaminski Jul 20, 2017 11:42 Migdalia Quiros MD Jul 20, 2017 23:56
[2017-07-20 12:00] VITALS: BP 151/66; PULSE 82; RESP 18; TEMP 97.9; O2SAT 96
[2017-07-20] MEDS: EPOETIN ALFA 20,000 UNITS/ML VIAL SQ SCH (12:30)
[2017-07-20] MEDS: MAGNESIUM SULFATE 1 GM PREMIX 100 ML IV SCH ×2 (12:35→13:12)
[2017-07-20 16:00] VITALS: BP 145/67; PULSE 87; RESP 18; TEMP 98.2; O2SAT 94
--- NOTE | 2017-07-20 16:04 | HHI.GIFU ---
Subjective Remarks Pt resting in bed. Still with liquid BM with clots. Unable to swallow asacol pill. (Carmen Mcdowell) Objective Vitals I&O Vital Signs Date Time Temp Pulse Resp B/P (MAP) Pulse Ox O2 Delivery O2 Flow Rate FiO2 07/20/17 08:00 99.0 83 18 123/58 (79) 96 07/20/17 04:00 Room Air 07/20/17 04:00 97.5 77 18 108/57 (74) 93 07/20/17 04:00 72 07/20/17 00:00 81 07/20/17 00:00 97.7 80 18 102/57 (72) 96 07/20/17 00:00 Room Air 07/19/17 20:00 76 07/19/17 20:00 Room Air 07/19/17 20:00 97.8 77 16 129/77 (94) 99 07/19/17 16:00 87 07/19/17 16:00 98.7 88 16 128/60 (82) 97 I/O 07/19/17 07/19/17 07/19/17 07/20/17 07/20/17 07/20/17 07:00 15:00 23:00 07:00 15:00 23:00 Intake Total 2120 ml 100 ml 240 ml 1000 ml Balance 2120 ml 100 ml 240 ml 1000 ml Intake Oral 240 ml 240 ml IV Total 1880 ml 100 ml 1000 ml # Voids 4 4 4 # Bowel Movements 0 Laboratory Laboratory Tests Test 07/19/17 18:35 07/20/17 06:21 Stool C. difficile Toxin (PCR) NEGATIVE Stl C. difficile Toxin Epiderm 027 PRESUMPTIVE NEGATIVE White Blood Count 7.4 Red Blood Count 2.80 Hemoglobin 5.1 Hematocrit 17.5 Mean Corpuscular Volume 62.4 Mean Corpuscular Hemoglobin 18.3 Mean Corpuscular Hemoglobin Concent 29.3 Red Cell Distribution Width 18.0 Platelet Count 263 Mean Platelet Volume 9.7 Neutrophils (%) (Auto) 60.8 Lymphocytes (%) (Auto) 25.4 Monocytes (%) (Auto) 9.9 Eosinophils (%) (Auto) 3.3 Basophils (%) (Auto) 0.6 Neutrophils # (Auto) 4.5 Lymphocytes # (Auto) 1.9 Monocytes # (Auto) 0.7 Eosinophils # (Auto) 0.2 Basophils # (Auto) 0.0 CBC Comment DIFF FINAL Differential Comment Hematology Comments Blood Urea Nitrogen 2 Creatinine 0.51 Random Glucose 97 Calcium Level 7.5 Magnesium Level 1.3 Sodium Level 147 Potassium Level 3.4 Chloride Level 115 Carbon Dioxide Level 24.9 Anion Gap 7 Estimat Glomerular Filtration Rate 115 Ferritin 63 Physical Exam HEENT: Normocephalic; atraumatic CHEST: CTA CARDIAC: RRR ABDOMEN: Soft, nondistended, no hepatosplenomegaly; bowel sounds active x 4. EXTREMITIES: No clubbing, cyanosis, or edema. SKIN: pale, ecchymoses BUE; no rash; no jaundice. JAMMER HOOKER: Awake, nonverbal (Carmen Mcdowell) Assessment and Plan Plan Assessment - Anemia- hgb 5.4 on admission, hypochromic, microcytic. Pt is a Jehovah witness, and per her daughter who is the POA, is refusing all blood products. EGD/colonoscopy (07/18) --> Minimal irritation of the stomach possibly NG tube vs gastritis. Colitis with exudate most likely ulcerative colitis but infectious process cannot be ruled out. No active bleeding. Per pts daughter, she has had chronic issues with blood in her stool, however, she reports not previous diagnosis of colitis. C. Diff toxin neg Colon biopsy pending. Also receiving iron transfusion and Epogen per hematology pt having difficulty swallowing asacol and cannot be crushed, d/w pharmacist and that is the only form available. entocort not available either. Plan - await colon bx - Monitor H/H - Pt is a Jehovah witness and does not accept blood transfusions - recommend Entocort 9mg daily but not available here - Asacol if pt can swallow - Supportive care - Further recommendations to follow Pt has been seen and examined by myself and Dr. Casiano and this note is written on his behalf (Carmen Mcdowell) Physician Comments Patient seen and examined Agree with above Continue with current supportive care Monitor labs We will check with the pharmacy with regards to the smallest size mesalamine tabs (Claudio Casiano MD) Carmen Mcdowell Jul 20, 2017 16:04 Claudio Casiano MD Jul 20, 2017 23:43
[2017-07-20 20:00] VITALS: BP 146/66; PULSE 74; PULSE 75; RESP 16; TEMP 98.8; O2SAT 96
[2017-07-20] MEDS: clonazePAM 1 MG TAB PO SCH (20:42)
[2017-07-20] MEDS: QUEtiapine FUMARATE 25 MG TAB PO SCH (20:44)
[2017-07-20] MEDS: OCTREOTIDE INJ 500 MCG in SODIUM CHLORID 0.9% 500 ML INJ 499.5 ML IV SCH (23:34)
[2017-07-21] VITALS (8 sets, daily range): BP systolic 116–143; BP diastolic 55–71; PULSE 72–86; RESP 16–18; TEMP 97.6–99.5; O2SAT 92–97
[2017-07-21] MEDS: MESALAMINE HD 800 MG DELAYED RELEASE TAB PO SCH ×2 (02:00→09:48)
[2017-07-21] MEDS: PANTOPRAZOLE SODIUM 40 MG VIAL IV PUSH SCH ×2 (08:28→20:18)
[2017-07-21] MEDS: CYANOCOBALAMIN 1000 MCG/ML VIAL IM SCH (08:28)
[2017-07-21] MEDS: IRON SUCROSE INJ 300 MG in SODIUM CHLORIDE 0.9% INJ 100 ML IV SCH (08:29)
[2017-07-21] MEDS: SODIUM CHLORIDE 0.9% FLUSH 10 ML FLUSH IV FLUSH SCH ×2 (08:29→20:18)
[2017-07-21] MEDS: DOCUSATE SODIUM 50 MG/SENNA 8.6 MG TAB PO SCH ×2 (08:29→20:18)
[2017-07-21] MEDS: FOLIC ACID 1 MG TAB PO SCH (08:29)
[2017-07-21 09:54] LABS: BASOPHIL % 0.5 % (0.0-2.0); EOSINOPHIL # 0.2 TH/MM3 (0-0.4); EOSINOPHIL % 2.5 % (0.0-4.0); HEMO FLAGS DIFF FINAL; LYMPH % 30.7 % (9.0-44.0); LYMPHOCYTE # 2.7 TH/MM3 (1.0-4.8); MEAN CELL VOLUME 63.1 FL (80.0-100.0); MEAN CORPUSCULAR HEMOGLOBIN 19.3 PG (27.0-34.0); MEAN CORPUSCULAR HGB CONC 30.6 % (32.0-36.0); MONO % 9.5 % (0.0-8.0); NEUT % 56.8 % (16.0-70.0); PLATELET COUNT 266 TH/MM3 (150-450); RED BLOOD COUNT 2.89 MIL/MM3 (4.00-5.30); RED CELL DISTRIBUTION WIDTH 18.3 % (11.6-17.2); WHITE BLOOD COUNT 8.8 TH/MM3 (4.0-11.0)
[2017-07-21 10:03] LABS: HEMATOCRIT 18.3 % (35.0-46.0)
[2017-07-21 10:42] LABS: BICARBONATE 25.1 MEQ/L (21.0-32.0); POTASSIUM 3.2 MEQ/L (3.5-5.1)
--- NOTE | 2017-07-21 11:21 | HHI.PR ---
Subjective Remarks Follow up anemia, electrolyte abnormalities. The patient is much more alert today. She does answer some questions, but remains confused. Denies pain. Discussed with daughter at bedside. Objective Vitals Vital Signs Date Time Temp Pulse Resp B/P (MAP) Pulse Ox O2 Delivery O2 Flow Rate FiO2 07/21/17 11:05 Room Air 07/21/17 08:46 Room Air 07/21/17 08:00 77 07/21/17 08:00 98.4 83 18 132/67 (88) 92 07/21/17 04:00 72 07/21/17 04:00 Room Air 07/21/17 04:00 98.6 77 16 126/62 (83) 95 07/21/17 00:00 75 07/21/17 00:00 Room Air 07/21/17 00:00 98.8 81 18 118/55 (76) 96 07/20/17 20:00 Room Air 07/20/17 20:00 98.8 74 16 146/66 (92) 96 07/20/17 20:00 75 07/20/17 16:00 98.2 87 18 145/67 (93) 94 07/20/17 12:00 97.9 82 18 151/66 (94) 96 I/O 07/20/17 07/20/17 07/20/17 07/21/17 07/21/17 07/21/17 07:00 15:00 23:00 07:00 15:00 23:00 Intake Total 1000 ml 2 ml 1940 ml Balance 1000 ml 2 ml 1940 ml Intake Oral 240 ml IV Total 1000 ml 2 ml 1700 ml # Voids 4 3 3 # Bowel Movements 3 Result Diagram: 07/21/1791807/21/17918 Objective Remarks General: Elderly female in no acute distress. Heart: Regular rate and rhythm. 2/6 systolic ejection murmur. Lungs: Clear to auscultation bilaterally. No wheezes, rales, or rhonchi. Breathing is nonlabored. Abdomen: Soft, nontender, nondistended. Extremities: No lower extremity edema. Psych: Alert. Confused. Procedures 07/18/17 EGD/colonoscopy Urinary Catheter: No Vascular Central Line Catheter: No A/P Assessment and Plan 1. GI bleed, severe anemia: Hemoglobin was 6.9 on presentation to the ER. H/H remains very low, but has stabilized. EGD/colonoscopy showed colitis, possibly ulcerative colitis. Biopsy pending. C. difficile toxin negative. Asacol ordered by GI. Appreciate hematology assistance. Continue Dandy Taylor. 2. Advanced dementia: Patient on hospice. HOVF consulted. 3. Hypokalemia: Supplement potassium. 4. Hypomagnesemia: Resolved with supplementation. 5. DVT prophylaxis: SCDs, NICOLE choudhury. Avoid chemical prophylaxis secondary to GI bleeding. I have discussed extensively with the patient's family that without transfusion , she will likely continue to worsen, leading to . The patient is Jehovah' s Witness and refuses all blood products. Prognosis is extremely poor and this has been communicated with the family multiple times. Rah Blanco MD Jul 21, 2017 11:21
--- NOTE | 2017-07-21 11:46 | PD.ONC.PN ---
Subjective Subjective Remarks Afebrile overnight. Patient resting in bed in nad. Daughter at bedside. Patient still having difficulty swallowing large pills. Objective Data Date Time Temp Pulse Resp B/P (MAP) Pulse Ox O2 Delivery O2 Flow Rate FiO2 07/21/17 11:05 Room Air 07/21/17 08:46 Room Air 07/21/17 08:00 77 07/21/17 08:00 98.4 83 18 132/67 (88) 92 07/21/17 04:00 72 07/21/17 04:00 Room Air 07/21/17 04:00 98.6 77 16 126/62 (83) 95 07/21/17 00:00 75 07/21/17 00:00 Room Air 07/21/17 00:00 98.8 81 18 118/55 (76) 96 07/20/17 20:00 Room Air 07/20/17 20:00 98.8 74 16 146/66 (92) 96 07/20/17 20:00 75 07/20/17 16:00 98.2 87 18 145/67 (93) 94 07/20/17 12:00 97.9 82 18 151/66 (94) 96 Result Diagram: 07/21/17 0919 07/21/17 0919 Laboratory Results Laboratory Tests Test 07/21/17 09:19 White Blood Count 8.8 TH/MM3 Red Blood Count 2.89 MIL/MM3 Hemoglobin 5.6 GM/DL Hematocrit 18.3 % Mean Corpuscular Volume 63.1 FL Mean Corpuscular Hemoglobin 19.3 PG Mean Corpuscular Hemoglobin Concent 30.6 % Red Cell Distribution Width 18.3 % Platelet Count 266 TH/MM3 Mean Platelet Volume 9.7 FL Neutrophils (%) (Auto) 56.8 % Lymphocytes (%) (Auto) 30.7 % Monocytes (%) (Auto) 9.5 % Eosinophils (%) (Auto) 2.5 % Basophils (%) (Auto) 0.5 % Neutrophils # (Auto) 5.0 TH/MM3 Lymphocytes # (Auto) 2.7 TH/MM3 Monocytes # (Auto) 0.8 TH/MM3 Eosinophils # (Auto) 0.2 TH/MM3 Basophils # (Auto) 0.0 TH/MM3 CBC Comment DIFF FINAL Differential Comment Hematology Comments Blood Urea Nitrogen 2 MG/DL Creatinine 0.45 MG/DL Random Glucose 97 MG/DL Calcium Level 7.5 MG/DL Magnesium Level 2.0 MG/DL Sodium Level 143 MEQ/L Potassium Level 3.2 MEQ/L Chloride Level 112 MEQ/L Carbon Dioxide Level 25.1 MEQ/L Anion Gap 6 MEQ/L Estimat Glomerular Filtration Rate 133 ML/MIN Administered Medications Medications (Trade) Dose Ordered Sig/Milton Route PRN Reason Start Time Stop Time Status Last Admin Dose Admin Sodium Chloride (NS Flush) 2 ml BID IV FLUSH 07/17/17 21:00 07/19/17 07:50 Pantoprazole Sodium (Protonix Inj) 40 mg BID IV PUSH 07/17/17 21:00 07/21/17 08:28 Octreotide Acetate 500 mcg/ Sodium Chloride 500 ml @ 25 mls/hr Q20H IV 07/17/17 22:00 07/22/17 21:59 07/20/17 23:34 Clonazepam (KlonoPIN) 1 mg HS PO 07/17/17 21:00 07/20/17 20:42 Quetiapine Fumarate (SEROquel) 50 mg HS PO 07/17/17 21:15 07/20/17 20:44 Senna/Docusate Sodium (Kirti-Colace) 1 tab BID PO 07/17/17 21:00 07/19/17 09:30 Mesalamine (Asacol Hd Dr) 800 mg Q8H PO 07/18/17 18:00 07/20/17 10:22 Potassium Chloride/Sodium Chloride 1,000 ml @ 50 mls/hr Q20H IV 07/19/17 10:00 07/20/17 23:34 Epoetin Vicente (Epogen Inj) 20,000 units TuThSa SQ 07/20/17 10:00 07/20/17 12:30 Folic Acid (Folate) 1 mg DAILY PO 07/19/17 17:30 07/21/17 08:29 Cyanocobalamin (Vitamin B12 Inj) 1,000 mcg DAILY IM 07/19/17 18:00 07/23/17 17:59 07/21/17 08:28 Iron Sucrose 300 mg/Sodium Chloride 115 ml @ 76.667 mls/ hr DAILY IV 07/20/17 09:00 07/22/17 10:29 07/21/17 08:29 Objective Remarks GENERAL: Pleasant female supine in bed in nad. SKIN: Warm and dry. +pallor HEAD: Normocephalic. EYES: No scleral icterus. No injection or drainage. NECK: Supple, trachea midline. CARDIOVASCULAR: +S1/S2 RESPIRATORY: anterior de santiago clear. GASTROINTESTINAL: Abdomen soft, non-tender, nondistended. EXTREMITIES: No cyanosis MUSCULOSKELETAL: Adequate muscle tone. NEUROLOGICAL: awake. tracks with eyes. following commands. Assessment/Plan Problem List: (1) Microcytic hypochromic anemia ICD Codes: D50.9 - Iron deficiency anemia, unspecified Plan: --give IV iron, epogen, B12 injections, avoid iatrogenic blood loss --no blood products, patient is Protestant. ++Severe anemia from GI blood loss from presumed colitis. -- EGD and colonoscopy, 07/18-->No active bleeding. ++ significant exudate with small ulcerations consistent with colitis, most likely ulcerative colitis versus less likely infection. Assessment 82y/o female admitted with anemia/bloody stools. --h/o Colitis. -- Tenriism declining blood products. --h/o hypertension, hyperlipidemia, multiple CVAs with residual neurologic deficit Plan 1. continue IV iron 2. continue epogen 3. minimize blood draws. Attending Statement The exam, history, and the medical decision-making described in the above note were completed with the assistance of the mid-level provider. I reviewed and agree with the findings presented. I attest that I had a [id number] encounter with the patient on the same day, and personally performed and documented my assessment and findings in the medical record.82 yoF with history of colitis admitted with anemia. Unable to accept blood products due to congregation beliefs. Will give IV iron, B12, folate and procrit. Sahra Kaminski Jul 21, 2017 11:46 Migdalia Quiros MD Jul 21, 2017 16:57
[2017-07-21] MEDS ORDERED: POTASSIUM CHLORIDE 25 MEQ EFFERVESCENT TAB PO ONE (12:35)
--- NOTE | 2017-07-21 15:43 | HHI.GIFU ---
Subjective Remarks Pt resting in bed. FAmily at bedside. Pt noncontributory. NAD. (Carmen Mcdowell) Objective Vitals I&O Vital Signs Date Time Temp Pulse Resp B/P (MAP) Pulse Ox O2 Delivery O2 Flow Rate FiO2 07/21/17 13:47 Room Air 07/21/17 12:00 78 07/21/17 12:00 97.6 82 18 116/71 (86) 94 07/21/17 11:05 Room Air 07/21/17 08:46 Room Air 07/21/17 08:00 77 07/21/17 08:00 98.4 83 18 132/67 (88) 92 07/21/17 04:00 72 07/21/17 04:00 Room Air 07/21/17 04:00 98.6 77 16 126/62 (83) 95 07/21/17 00:00 75 07/21/17 00:00 Room Air 07/21/17 00:00 98.8 81 18 118/55 (76) 96 07/20/17 20:00 Room Air 07/20/17 20:00 98.8 74 16 146/66 (92) 96 07/20/17 20:00 75 07/20/17 16:00 98.2 87 18 145/67 (93) 94 I/O 07/20/17 07/20/17 07/20/17 07/21/17 07/21/17 07/21/17 07:00 15:00 23:00 07:00 15:00 23:00 Intake Total 1000 ml 2 ml 1940 ml Balance 1000 ml 2 ml 1940 ml Intake Oral 240 ml IV Total 1000 ml 2 ml 1700 ml # Voids 4 3 3 # Bowel Movements 3 Laboratory Laboratory Tests Test 07/21/17 09:19 White Blood Count 8.8 Red Blood Count 2.89 Hemoglobin 5.6 Hematocrit 18.3 Mean Corpuscular Volume 63.1 Mean Corpuscular Hemoglobin 19.3 Mean Corpuscular Hemoglobin Concent 30.6 Red Cell Distribution Width 18.3 Platelet Count 266 Mean Platelet Volume 9.7 Neutrophils (%) (Auto) 56.8 Lymphocytes (%) (Auto) 30.7 Monocytes (%) (Auto) 9.5 Eosinophils (%) (Auto) 2.5 Basophils (%) (Auto) 0.5 Neutrophils # (Auto) 5.0 Lymphocytes # (Auto) 2.7 Monocytes # (Auto) 0.8 Eosinophils # (Auto) 0.2 Basophils # (Auto) 0.0 CBC Comment DIFF FINAL Differential Comment Hematology Comments Blood Urea Nitrogen 2 Creatinine 0.45 Random Glucose 97 Calcium Level 7.5 Magnesium Level 2.0 Sodium Level 143 Potassium Level 3.2 Chloride Level 112 Carbon Dioxide Level 25.1 Anion Gap 6 Estimat Glomerular Filtration Rate 133 Physical Exam HEENT: Normocephalic; atraumatic CHEST: CTA CARDIAC: RRR ABDOMEN: Soft, nondistended, no hepatosplenomegaly; bowel sounds active x 4. EXTREMITIES: No clubbing, cyanosis, or edema. SKIN: pale, ecchymoses BUE; no rash; no jaundice. TEACHERS AIDE: Awake, nonverbal, not cooperative (Carmen Mcdowell) Assessment and Plan Plan Assessment - Anemia- hgb 5.4 on admission, hypochromic, microcytic. Pt is a Jehovah witness, and per her daughter who is the POA, is refusing all blood products. EGD/colonoscopy (07/18) --> Minimal irritation of the stomach possibly NG tube vs gastritis. Colitis with exudate most likely ulcerative colitis but infectious process cannot be ruled out. No active bleeding. Per pts daughter, she has had chronic issues with blood in her stool, however, she reports not previous diagnosis of colitis. C. Diff toxin neg Colon biopsy suggestive of active chronic IBD. Also receiving iron transfusion and Epogen per hematology pt cannot swallow asacol 800mg and it is not available in any other form or dosage here, neither is entocort Plan - prednisone 30mg daily for now - Monitor H/H - Pt is a Jehovah witness and does not accept blood transfusions - Entocort 9mg daily upon d/c - Supportive care - GI follow up as outpatient - Further recommendations to follow Pt has been seen and examined by myself and Dr. Casiano and this note is written on his behalf (Carmen Mcdowell) Physician Comments Patient seen and examined Agree with above Continue with current supportive care Monitor labs Prednisone 30 mg daily at this point But upon discharge he would be best to switch the patient Entocort 9 mg daily Patient follow-up with GI post discharge All much to add at this point from a GI perspective we will sign off (Claudio Casiano MD) Carmen Mcdowell Jul 21, 2017 15:43 Claudio Casiano MD Jul 21, 2017 22:24
[2017-07-21] MEDS: clonazePAM 1 MG TAB PO SCH (20:18)
[2017-07-21] MEDS: QUEtiapine FUMARATE 25 MG TAB PO SCH (20:18)
[2017-07-21] MEDS: NS + KCL 20 MEQ INJ 1,000 ML IV SCH (20:19)
[2017-07-21] MEDS: OCTREOTIDE INJ 500 MCG in SODIUM CHLORID 0.9% 500 ML INJ 499.5 ML IV SCH (23:08)
[2017-07-22] VITALS (7 sets, daily range): BP systolic 111–153; BP diastolic 56–70; PULSE 75–92; RESP 16–20; TEMP 97.3–98.9; O2SAT 96–97
[2017-07-22] MEDS: DOCUSATE SODIUM 50 MG/SENNA 8.6 MG TAB PO SCH ×2 (08:09→20:36)
[2017-07-22] MEDS: predniSONE 10 MG TAB PO SCH (08:09)
[2017-07-22] MEDS: IRON SUCROSE INJ 300 MG in SODIUM CHLORIDE 0.9% INJ 100 ML IV SCH (08:09)
[2017-07-22] MEDS: FOLIC ACID 1 MG TAB PO SCH (08:09)
[2017-07-22] MEDS: CYANOCOBALAMIN 1000 MCG/ML VIAL IM SCH (08:09)
[2017-07-22] MEDS: SODIUM CHLORIDE 0.9% FLUSH 10 ML FLUSH IV FLUSH SCH ×2 (08:09→20:36)
[2017-07-22] MEDS: PANTOPRAZOLE SODIUM 40 MG VIAL IV PUSH SCH ×2 (08:09→20:35)
[2017-07-22] MEDS: EPOETIN ALFA 20,000 UNITS/ML VIAL SQ SCH (09:34)
--- NOTE | 2017-07-22 11:25 | HHI.PR ---
Subjective Remarks Follow up anemia, colitis, hypokalemia. Patient is alert today. Denies pain. Still confused. Per family, she is doing better today. Objective Vitals Vital Signs Date Time Temp Pulse Resp B/P (MAP) Pulse Ox O2 Delivery O2 Flow Rate FiO2 07/22/17 08:21 Room Air 07/22/17 08:00 98.0 86 20 145/56 (85) 97 07/22/17 08:00 78 07/22/17 04:00 98.9 80 16 111/61 (78) 96 07/22/17 04:00 79 07/22/17 00:00 98.9 83 16 138/63 (88) 97 07/22/17 00:00 83 07/21/17 20:00 82 07/21/17 20:00 99.5 81 16 133/61 (85) 97 07/21/17 18:08 85 07/21/17 17:23 Room Air 07/21/17 16:00 98.3 86 18 143/63 (89) 96 07/21/17 15:41 94 07/21/17 13:47 Room Air 07/21/17 12:00 78 07/21/17 12:00 97.6 82 18 116/71 (86) 94 I/O 07/21/17 07/21/17 07/21/17 07/22/17 07/22/17 07/22/17 07:00 15:00 23:00 07:00 15:00 23:00 Intake Total 1499 ml Balance 1499 ml IV Total 1499 ml # Voids 3 2 4 # Bowel Movements 1 Result Diagram: 07/21/1791807/21/17918 Objective Remarks General: Elderly female in no acute distress. Heart: Regular rate and rhythm. 2/6 systolic ejection murmur. Lungs: Clear to auscultation bilaterally. No wheezes, rales, or rhonchi. Breathing is nonlabored. Abdomen: Soft, nontender, nondistended. Extremities: No lower extremity edema. Psych: Alert. Confused. Procedures 07/18/17 EGD/colonoscopy Urinary Catheter: No Vascular Central Line Catheter: No A/P Assessment and Plan 1. GI bleed, severe anemia: Hemoglobin was 6.9 on presentation to the ER. H/H remains very low, but has stabilized. EGD/colonoscopy showed colitis, possibly ulcerative colitis. Biopsy pending. C. difficile toxin negative. Prednisone while in hospital per GI, then switch to Entocort. Appreciate hematology assistance. Continue Procrit. Received IV iron. 2. Advanced dementia: Patient on hospice. HOVF consulted. 3. Hypokalemia: Supplement potassium. 4. Hypomagnesemia: Resolved with supplementation. 5. DVT prophylaxis: SCDs, NICOLE goodmane. Avoid chemical prophylaxis secondary to GI bleeding. 6. Poor prognosis overall. Patient is on Hospice and the plan is for the patient to return home with family under care of Hospice. Discharge Planning Possible discharge home with Hospice soon, if OK with hematology. Rah Blanco MD Jul 22, 2017 11:25
[2017-07-22] MEDS: NS + KCL 20 MEQ INJ 1,000 ML IV SCH (17:21)
[2017-07-22] MEDS: QUEtiapine FUMARATE 25 MG TAB PO SCH (20:35)
[2017-07-22] MEDS: clonazePAM 1 MG TAB PO SCH (20:35)
[2017-07-23] VITALS (10 sets, daily range): BP systolic 114–155; BP diastolic 56–91; PULSE 60–87; RESP 17–20; TEMP 97–97.6; O2SAT 96–100
[2017-07-23] MEDS: SODIUM CHLORIDE 0.9% FLUSH 10 ML FLUSH IV FLUSH SCH ×2 (07:47→21:08)
[2017-07-23] MEDS: PANTOPRAZOLE SODIUM 40 MG VIAL IV PUSH SCH ×2 (08:40→21:08)
[2017-07-23] MEDS: predniSONE 10 MG TAB PO SCH (08:40)
[2017-07-23] MEDS: CYANOCOBALAMIN 1000 MCG/ML VIAL IM SCH (08:40)
[2017-07-23] MEDS: FOLIC ACID 1 MG TAB PO SCH (08:40)
[2017-07-23] MEDS: DOCUSATE SODIUM 50 MG/SENNA 8.6 MG TAB PO SCH ×2 (08:40→21:00)
[2017-07-23] MEDS: NS + KCL 20 MEQ INJ 1,000 ML IV SCH (08:41)
[2017-07-23 10:11] LABS: AUTOMATED NEUTROPHIL # 6.6 TH/MM3 (1.8-7.7); BASOPHIL # 0.1 TH/MM3 (0-0.2); BASOPHIL % 0.6 % (0.0-2.0); EOSINOPHIL % 0.1 % (0.0-4.0); HEMO FLAGS AUTO DIFF; LYMPH % 33.8 % (9.0-44.0); LYMPHOCYTE # 3.9 TH/MM3 (1.0-4.8); MEAN CELL VOLUME 66.9 FL (80.0-100.0); MEAN CORPUSCULAR HEMOGLOBIN 19.3 PG (27.0-34.0); MEAN CORPUSCULAR HGB CONC 28.8 % (32.0-36.0); MONO % 8.5 % (0.0-8.0); PLATELET COUNT 279 TH/MM3 (150-450); RED CELL DISTRIBUTION WIDTH 18.7 % (11.6-17.2); WHITE BLOOD COUNT 11.5 TH/MM3 (4.0-11.0)
[2017-07-23 10:16] LABS: HEMATOCRIT 20.1 % (35.0-46.0)
[2017-07-23 10:19] LABS: BICARBONATE 25.3 MEQ/L (21.0-32.0)
[2017-07-23 10:56] LABS: BANDS 2 % (0-6); BASOPHILS 1 % (0-2); CORRECTED NUCLEATED RBC 3 /100 WBC (0-0); NEUTROPHIL # MANUAL DIFF 5.6 TH/MM3 (1.8-7.7); POLYS (SEG NEUTROPHILS) 47 % (16-70); WBC DIFF SAMPLE 100
[2017-07-23 10:57] LABS: PLATELET ESTIMATE SMEAR NORMAL (NORMAL); PLATELET MORPHOLOGY ENLARGED (NORMAL); SCAN/DIFF FINAL DIFF MANUAL
--- NOTE | 2017-07-23 11:14 | HHI.PR ---
Subjective Remarks Follow up anemia. Patient expresses no complaints at this time. No bleeding reported. Discussed with patient's daughter at bedside. Objective Vitals Vital Signs Date Time Temp Pulse Resp B/P (MAP) Pulse Ox O2 Delivery O2 Flow Rate FiO2 07/23/17 10:52 Room Air 07/23/17 08:08 97.2 76 17 143/76 (98) 96 07/23/17 04:00 63 07/23/17 04:00 97.0 68 18 155/67 (96) 99 07/23/17 03:00 60 07/23/17 00:00 72 07/23/17 00:00 97.3 72 20 114/56 (75) 96 07/22/17 20:41 Room Air 07/22/17 20:00 97.4 78 20 134/63 (86) 96 07/22/17 20:00 75 07/22/17 18:12 Room Air 07/22/17 16:00 97.3 84 20 143/67 (92) 96 07/22/17 16:00 87 07/22/17 13:36 97 07/22/17 12:32 Room Air 07/22/17 12:00 97.3 86 20 153/70 (97) 97 07/22/17 12:00 92 I/O 07/22/17 07/22/17 07/22/17 07/23/17 07/23/17 07/23/17 07:00 15:00 23:00 07:00 15:00 23:00 Intake Total 460 ml 100 ml Balance 460 ml 100 ml Intake Oral 360 ml IV Total 100 ml 100 ml # Voids 4 1 # Bowel Movements 2 Result Diagram: 07/23/17 0745 07/23/17 0745 Objective Remarks General: Syriac speaking elderly female in no acute distress. Heart: Regular rate and rhythm. 2/6 systolic ejection murmur. Lungs: Clear to auscultation bilaterally. No wheezes, rales, or rhonchi. Breathing is nonlabored. Abdomen: Soft, nontender, nondistended. Extremities: No lower extremity edema. Psych: Alert. Confused. Procedures 07/18/17 EGD/colonoscopy Urinary Catheter: No Vascular Central Line Catheter: No A/P Assessment and Plan 1. GI bleed, severe anemia: Hemoglobin was 6.9 on presentation to the ER. H/H remains very low, but has stabilized. EGD/colonoscopy showed colitis, possibly ulcerative colitis. Biopsy pending. C. difficile toxin negative. Prednisone while in hospital per GI, then switch to Entocort. Appreciate hematology assistance. Continue Procrit. Received IV iron. Octreotide discontinued. Will monitor for worsening bleeding. 2. Advanced dementia: Stable. 3. Hypokalemia: Supplement potassium. 4. Hypomagnesemia: Resolved with supplementation. 5. DVT prophylaxis: SCDs, NICOLE goodmane. Avoid chemical prophylaxis secondary to GI bleeding. 6. Poor prognosis overall. Patient is on Hospice, but family wants to revoke hospice at this time. Discussed with Sahra Cole/onc. Discharge Planning Patient's family wants to discontinue hospice. They would like her to be discharged home with home health care. Possible discharge next 1-2 days with [facility] nursing and PT if no further bleeding. Would need follow up with Hematology for Procrit, Iron infusions. Rah Blanco MD Jul 23, 2017 11:14
--- NOTE | 2017-07-23 11:57 | PD.ONC.PN ---
Subjective Subjective Remarks Afebrile overnight. Patient resting in bed with daughter at bedside. Daughter states she is going to take her mother off hospice, as she wants to continue the medications that she has been receiving in the hospital, and also for the patient to be able to receive home health care at home. Objective Data Date Time Temp Pulse Resp B/P (MAP) Pulse Ox O2 Delivery O2 Flow Rate FiO2 07/23/17 10:52 Room Air 07/23/17 08:08 97.2 76 17 143/76 (98) 96 07/23/17 04:00 63 07/23/17 04:00 97.0 68 18 155/67 (96) 99 07/23/17 03:00 60 07/23/17 00:00 72 07/23/17 00:00 97.3 72 20 114/56 (75) 96 07/22/17 20:41 Room Air 07/22/17 20:00 97.4 78 20 134/63 (86) 96 07/22/17 20:00 75 07/22/17 18:12 Room Air 07/22/17 16:00 97.3 84 20 143/67 (92) 96 07/22/17 16:00 87 07/22/17 13:36 97 07/22/17 12:32 Room Air 07/22/17 12:00 97.3 86 20 153/70 (97) 97 07/22/17 12:00 92 Result Diagram: 07/23/17 0745 07/23/17 0745 Laboratory Results Laboratory Tests Test 07/23/17 07:45 White Blood Count 11.5 TH/MM3 Red Blood Count 3.00 MIL/MM3 Hemoglobin 5.8 GM/DL Hematocrit 20.1 % Mean Corpuscular Volume 66.9 FL Mean Corpuscular Hemoglobin 19.3 PG Mean Corpuscular Hemoglobin Concent 28.8 % Red Cell Distribution Width 18.7 % Platelet Count 279 TH/MM3 Mean Platelet Volume 9.2 FL Neutrophils (%) (Auto) 57.0 % Lymphocytes (%) (Auto) 33.8 % Monocytes (%) (Auto) 8.5 % Eosinophils (%) (Auto) 0.1 % Basophils (%) (Auto) 0.6 % Neutrophils # (Auto) 6.6 TH/MM3 Lymphocytes # (Auto) 3.9 TH/MM3 Monocytes # (Auto) 1.0 TH/MM3 Eosinophils # (Auto) 0.0 TH/MM3 Basophils # (Auto) 0.1 TH/MM3 CBC Comment AUTO DIFF Differential Total Cells Counted 100 Neutrophils % (Manual) 47 % Band Neutrophils % 2 % Lymphocytes % 45 % Monocytes % 5 % Basophils % 1 % Neutrophils # (Manual) 5.6 TH/MM3 Nucleated Red Blood Cells 3 /100 WBC Differential Comment FINAL DIFF MANUAL Platelet Estimate NORMAL Platelet Morphology Comment ENLARGED Hematology Comments Blood Urea Nitrogen 4 MG/DL Creatinine 0.51 MG/DL Random Glucose 71 MG/DL Calcium Level 8.1 MG/DL Sodium Level 144 MEQ/L Potassium Level 4.0 MEQ/L Chloride Level 114 MEQ/L Carbon Dioxide Level 25.3 MEQ/L Anion Gap 5 MEQ/L Estimat Glomerular Filtration Rate 115 ML/MIN Administered Medications Medications (Trade) Dose Ordered Sig/Milton Route PRN Reason Start Time Stop Time Status Last Admin Dose Admin Sodium Chloride (NS Flush) 2 ml BID IV FLUSH 07/17/17 21:00 07/23/17 07:47 Pantoprazole Sodium (Protonix Inj) 40 mg BID IV PUSH 07/17/17 21:00 07/23/17 08:40 Clonazepam (KlonoPIN) 1 mg HS PO 07/17/17 21:00 07/22/17 20:35 Quetiapine Fumarate (SEROquel) 50 mg HS PO 07/17/17 21:15 07/22/17 20:35 Senna/Docusate Sodium (Kirti-Colace) 1 tab BID PO 07/17/17 21:00 07/23/17 08:40 Potassium Chloride/Sodium Chloride 1,000 ml @ 50 mls/hr Q20H IV 07/19/17 10:00 07/23/17 08:41 Epoetin Vicente (Epogen Inj) 20,000 units TuThSa SQ 07/20/17 10:00 07/22/17 09:34 Folic Acid (Folate) 1 mg DAILY PO 07/19/17 17:30 07/23/17 08:40 Cyanocobalamin (Vitamin B12 Inj) 1,000 mcg DAILY IM 07/19/17 18:00 07/23/17 17:59 07/23/17 08:40 Prednisone (Deltasone) 30 mg DAILY PO 07/22/17 09:00 07/23/17 08:40 Objective Remarks GENERAL: Pale female, lying in bed in nad. SKIN: Warm and dry. HEAD: Normocephalic. EYES: No injection or drainage. NECK: Supple, trachea midline. CARDIOVASCULAR: Regular rate and rhythm RESPIRATORY: anterior de santiago clear. GASTROINTESTINAL: Abdomen soft, non-tender, nondistended. EXTREMITIES: No cyanosis NEUROLOGICAL: awake and alert, moving extremities. Assessment/Plan Problem List: (1) Microcytic hypochromic anemia ICD Codes: D50.9 - Iron deficiency anemia, unspecified Plan: --give IV iron, epogen, B12 injections, avoid iatrogenic blood loss --no blood products, patient is Hindu. ++Severe anemia from GI blood loss from presumed colitis. -- EGD and colonoscopy, 07/18-->No active bleeding. ++ significant exudate with small ulcerations consistent with colitis, most likely ulcerative colitis versus less likely infection. Assessment 82y/o female admitted with anemia/bloody stools. --h/o Colitis. -- Oriental orthodox declining blood products. --h/o hypertension, hyperlipidemia, multiple CVAs with residual neurologic deficit Plan 1. face sheet faxed to new patient referrals for follow up with Dr. Quiros in one week 2. continue Epogen, will plan for more IV iron on an outpatient basis. 3. as patient is refusing blood transfusions, I do not see a reason for her to remain inpatient. we can give epogen injections outpatient as well as IV iron. I have advised patient's caregiver/daughter that with a hemoglobin of 5 her mother is at risk for multiple adverse events. Attending Statement The exam, history, and the medical decision-making described in the above note were completed with the assistance of the mid-level provider. I reviewed and agree with the findings presented. I attest that I had a avjs-fa-swak encounter with the patient on the same day, and personally performed and documented my assessment and findings in the medical record. 82 yoF with advanced dementia admitted with anemia due to colitis. GI team following. Unable to receive blood products due to sabianism beliefs. IV iron, B12, folate , procrit. Sahra Kaminski Jul 23, 2017 11:57 Migdalia Quiros MD Jul 23, 2017 20:26
[2017-07-23] MEDS ORDERED: MORPHINE SULFATE 2 MG/ML INJ IV PUSH PRN ×2 (16:30)
[2017-07-23] MEDS: clonazePAM 1 MG TAB PO SCH (21:05)
[2017-07-23] MEDS: QUEtiapine FUMARATE 25 MG TAB PO SCH (21:05)
[2017-07-24] VITALS (7 sets, daily range): BP systolic 110–161; BP diastolic 60–71; PULSE 61–84; RESP 16–18; TEMP 97.3–97.7; O2SAT 95–99
[2017-07-24] MEDS ORDERED: [UNRECOGNIZED DRUG - CODE] SQ (07:18)
--- NOTE | 2017-07-24 07:19 | HHI.DCPOC ---
Discharge Care Plan Diagnosis: (1) Microcytic hypochromic anemia Your Health Problems Are: Difficulty with ADL Exercise Tolerance Goals to Promote Your Health * To prevent worsening of your condition and complications * To maintain your health at the optimal level Directions to Meet Your Goals Take your medications as prescribed Follow your dietary instruction Follow activity as directed Keep your appointments as scheduled Take your immunizations and boosters as scheduled If your symptoms worsen call your PCP, if no PCP go to Urgent Care Center or Emergency Room Smoking is Dangerous to Your Health. Avoid second hand smoke Call the 24-hour hour crisis hotline for domestic abuse at Parveen Mart MD Jul 24, 2017 07:19
--- NOTE | 2017-07-24 07:20 | HHI.FF ---
Face to Face Verification Diagnosis: (1) Microcytic hypochromic anemia Home Health Nursing Order: Medical education Signs/symptoms of disease process Medication education-adverse effect Nursing assessment with vital signs I have seen patient Obdulia Price on 07/24/17. My clinical findings support the need for the requested home health care services because: Ltd mobility - disease progression Deconditioned w/ increased weakness I certify that my clinical findings support that this patient is homebound because: Unsafe to leave home unassisted Parveen Mart MD Jul 24, 2017 07:20
[2017-07-24] MEDS ORDERED: CLON1 PO (07:28)
[2017-07-24] MEDS ORDERED: FOLI1TAB6 PO (07:28)
[2017-07-24] MEDS: SODIUM CHLORIDE 0.9% FLUSH 10 ML FLUSH IV FLUSH SCH (07:52)
[2017-07-24] MEDS: FOLIC ACID 1 MG TAB PO SCH (08:16)
[2017-07-24] MEDS: DOCUSATE SODIUM 50 MG/SENNA 8.6 MG TAB PO SCH (08:16)
[2017-07-24] MEDS: predniSONE 10 MG TAB PO SCH (08:16)
[2017-07-24] MEDS: EPOETIN ALFA 20,000 UNITS/ML VIAL SQ SCH (08:19)
[2017-07-24] MEDS: NS + KCL 20 MEQ INJ 1,000 ML IV SCH (08:20)
[2017-07-24] MEDS ORDERED: PANTOPRAZOLE SOD 40 MG DELAYED RELEASE TAB PO SCH (09:00)
[2017-07-24] MEDS ORDERED: PRED10 PO (11:23)
[2017-07-24] MEDS ORDERED: VITA10002 PO (13:02)
--- NOTE | 2017-07-24 13:08 | HHI.PR ---
Subjective Remarks Follow-up anemia and GI bleed. Patient has no complaints since awake but confused with history of dementia. Seen with granddaughter for reported 2 episodes of hematochezia yesterday no recurrence since then. Discussed with GI , stable for discharge if no further bleeding and may continue prednisone since patient would not swallow meds and Entocort cannot be crushed. Discussed with hematology, okay to discharge on by mouth vitamin B 12 and will give injections in the clinic. Stress with case management, daughter has decided to reenlist her to hospice Objective Vitals Vital Signs Date Time Temp Pulse Resp B/P (MAP) Pulse Ox O2 Delivery O2 Flow Rate FiO2 07/24/17 12:12 97.7 84 18 110/62 (78) 97 07/24/17 09:18 95 21 07/24/17 08:00 97.6 74 16 134/60 (84) 97 07/24/17 05:45 97 07/24/17 04:00 97.3 62 16 161/71 (101) 99 07/24/17 04:00 61 07/24/17 04:00 Room Air 07/24/17 00:00 97.3 66 16 124/66 (85) 97 07/24/17 00:00 Room Air 07/24/17 00:00 70 07/23/17 20:00 87 07/23/17 20:00 Room Air 07/23/17 20:00 97.6 69 18 150/70 (96) 96 07/23/17 16:24 77 07/23/17 16:08 97.0 73 17 142/78 (99) 99 I/O 07/23/17 07/23/17 07/23/17 07/24/17 07/24/17 07/24/17 07:00 15:00 23:00 07:00 15:00 23:00 Intake Total 320 ml 629 ml Balance 320 ml 629 ml Intake Oral 320 ml IV Total 629 ml # Voids 4 3 # Bowel Movements 2 Result Diagram: 07/23/17 0745 07/23/17 0745 Imaging Objective Remarks General: Faroese speaking elderly female in no acute distress. Heart: Regular rate and rhythm. 2/6 systolic ejection murmur. Lungs: Clear to auscultation bilaterally. No wheezes, rales, or rhonchi. Breathing is nonlabored. Abdomen: Soft, nontender, nondistended. Extremities: No lower extremity edema. Psych: Alert. Confused. Procedures 07/18/17 EGD/colonoscopy A/P Problem List: (1) Microcytic hypochromic anemia ICD Code: D50.9 - Iron deficiency anemia, unspecified Assessment and Plan 1. GI bleed, severe anemia: Hemoglobin was 6.9 on presentation to the ER. H/H remains very low, but has stabilized. EGD/colonoscopy showed colitis, negative C. difficile. Biopsy suggestive of active chronic inflammatory bowel disease. Prednisone while in hospital per GI, then switch to Entocort if tolerated. Appreciate hematology assistance. Refusing blood test patient patient is a Congregational. Continue Procrit, B-12 and folic acid. Received IV iron. 2. Advanced dementia: Stable. 3. Hypokalemia: Supplement potassium. 4. Hypomagnesemia: Resolved with supplementation. 5. DVT prophylaxis: SCDs, NICOLE choudhury. Avoid chemical prophylaxis secondary to GI bleeding. 6. Poor prognosis overall. Patient is back on Hospice Discharge Planning Discharge under hospice care continues to refuse blood transfusion secondary to yazidi believes Parveen Mart MD Jul 24, 2017 13:08
--- NOTE | 2017-07-24 13:08 | HHI.DS ---
Discharge Summary Admission Date Jul 17, 2017 at 20:42 Discharge Date: Jul 24, 2017 Admitting Diagnosis (1) Microcytic hypochromic anemia ICD Code: D50.9 - Iron deficiency anemia, unspecified Diagnosis: Principal Procedures 07/18/17 EGD/colonoscopy Brief History - From Admission 82-year-old female on hospice for advanced dementia with a past medical history of hypertension, hyperlipidemia and multiple CVAs was brought to the emergency department by her daughter whom she lives with for soft, bloody stools since Wednesday. The patient is mostly nonverbal however her daughter who is her laboratory animal caretaker describes dark blood with clots in the patient's stool since Wednesday. She has a history of anemia with GI bleed. Her last colonoscopy was 7 years ago which did not identify a source of bleeding. Patient's vital signs are stable. She has an H&H of 6.9/25.1. The patient is Mu-ism and refuses all blood products. Her daughter also requests minimization of blood draws. CBC/BMP: 07/23/17 0745 07/23/17 0745 Significant Findings Laboratory Tests Test 07/23/17 07:45 White Blood Count 11.5 TH/MM3 (4.0-11.0) Red Blood Count 3.00 MIL/MM3 (4.00-5.30) Hemoglobin 5.8 GM/DL (11.6-15.3) Hematocrit 20.1 % (35.0-46.0) Mean Corpuscular Volume 66.9 FL (80.0-100.0) Mean Corpuscular Hemoglobin 19.3 PG (27.0-34.0) Mean Corpuscular Hemoglobin Concent 28.8 % (32.0-36.0) Red Cell Distribution Width 18.7 % (11.6-17.2) Monocytes (%) (Auto) 8.5 % (0.0-8.0) Monocytes # (Auto) 1.0 TH/MM3 (0-0.9) Lymphocytes % 45 % (9-44) Nucleated Red Blood Cells 3 /100 WBC (0-0) Platelet Morphology Comment ENLARGED (NORMAL) Blood Urea Nitrogen 4 MG/DL (7-18) Random Glucose 71 MG/DL (74-106) Calcium Level 8.1 MG/DL (8.5-10.1) Chloride Level 114 MEQ/L (98-107) PE at Discharge General: Maori speaking elderly female in no acute distress. Heart: Regular rate and rhythm. 2/6 systolic ejection murmur. Lungs: Clear to auscultation bilaterally. No wheezes, rales, or rhonchi. Breathing is nonlabored. Abdomen: Soft, nontender, nondistended. Extremities: No lower extremity edema. Psych: Alert. Confused. Hospital Course 1. GI bleed, severe anemia: Hemoglobin was 6.9 on presentation to the ER. H/H remains very low, but has stabilized. EGD/colonoscopy showed colitis, negative C. difficile. Biopsy suggestive of active chronic inflammatory bowel disease. Prednisone while in hospital per GI, then switch to Entocort if tolerated. Appreciate hematology assistance. Refusing blood test patient patient is a Mu-ism. Continue Procrit, B-12 and folic acid. Received IV iron. 2. Advanced dementia: Stable. 3. Hypokalemia: Supplement potassium. 4. Hypomagnesemia: Resolved with supplementation. 5. DVT prophylaxis: NICOLE Pearl. Avoid chemical prophylaxis secondary to GI bleeding. 6. Poor prognosis overall. Patient is back on Hospice Pt Condition on Discharge: Stable Discharge Disposition: Hospice/ Home Discharge Time: > 30 minutes Discharge Instructions DIET: Follow Instructions for: As Tolerated, No Restrictions Activities you can perform: Regular-No Restrictions Activities to Avoid: Driving Follow up Referrals: Oncology/Hematology - 1 Week PCP Follow-up - 1 Week New Medications: Cyanocobalamin (Vitamin B-12) 1,000 Mcg Tab 1000 MCG PO DAILY for Nutritional Supplement, #1 BOTTLE 0 Refills Epoetin Inj (Epogen Inj) 20,000 Unit/Ml Inj [id number] UNITS SQ [id number] for Build Red Blood Cells, #12 VIAL give dose on Wednesday, and Wednesday Clonazepam (Klonopin) 1 Mg Tab 1 MG PO HS for Anxiety, #7 TAB Folic Acid (Folic Acid) 1 Mg Tablet 1 MG PO DAILY for anemia, #30 TAB Prednisone (Prednisone) 10 Mg Tab 30 MG PO DAILY for Control Inflammation, #90 TAB Continued Medications: Quetiapine (Quetiapine) 50 Mg Tab 50 MG PO HS, #30 TAB 0 Refills Sennosides-Docusate Sodium (Docusate Sodium-Senna) 8.6-50 Mg Tab 1 TAB PO QD for Prevent Constipation, #30 TAB 0 Refills Zinc Oxide (Topical) (Zinc Oxide) 20 % Oin Discontinued Medications: Acetaminophen (Acetaminophen Extra Strength) 500 Mg Tablet 650 MG PO Q4HR Bisacodyl Supp (Bisacodyl Supp) 10 Mg Supp 10 MG RECTAL DAILY PRN for CONSTIPATION, SUPP 0 Refills Clonazepam (Clonazepam) 1 Mg Tab 1 MG PO HS, #60 TAB 0 Refills Lorazepam (Lorazepam) 0.5 Mg Tab 0.5 MG PO Q6H PRN for ANXIETY, TAB 0 Refills Lorazepam (Lorazepam) 1 Mg Tab 1 MG PO Q6H PRN for ANXIETY, TAB 0 Refills Parveen Mart MD Jul 24, 2017 13:08
[2017-07-25] MEDS ORDERED: IRON SUCROSE INJ 100 MG in SODIUM CHLORIDE 0.9% INJ 100 ML IV SCH (12:00)
== END 2017-07-24 18:36 | disposition hospice, home (50) | DRG 387 ==
LOC: NEDDLT 20:37 → N04B 20:42
PROVIDERS: ADMIT Internal Medicine; ATTEND Internal Medicine
PROC: 0DJ08ZZ Inspection of Upper Intestinal Tract, Via Natural or Artificial Opening Endoscopic (ICD-10-PCS; principal; 2017-07-18 16:55)
PROC: 0DBE8ZX Excision of Large Intestine, Via Natural or Artificial Opening Endoscopic, Diagnostic (ICD-10-PCS; 2017-07-18 16:55)
DX: K51.90 Ulcerative colitis, unspecified, without complications (principal); F03.90 Unspecified dementia, unspecified severity, without behavioral disturbance, psychotic disturbance, mood disturbance, and anxiety; D50.0 Iron deficiency anemia secondary to blood loss (chronic); E83.42 Hypomagnesemia; I10 Essential (primary) hypertension; Z86.73 Personal history of transient ischemic attack (TIA), and cerebral infarction without residual deficits; E78.5 Hyperlipidemia, unspecified; Z83.3 Family history of diabetes mellitus; Z53.1 Procedure and treatment not carried out because of patient's decision for reasons of belief and group pressure; E87.6 Hypokalemia; R13.10 Dysphagia, unspecified
CPT/HCPCS: 76937; 80048; 80053; 81001; 82728; 83036; 83540; 83550; 83735; 84100; 84155; 84439; 84443; 85007; 85014; 85018; 85025; 85027; 85610; 85730; 87086; 87493; 88305; 96374; C9113; J0696; J1756; J2354; J3420; J3475; J3480; J7030; J7040; J7512; P9612; Q4081